=== PATIENT | female | born 1975 | race Caucasian/White ===

== ENCOUNTER → 2020-05-11 11:11 | Outpatient (BNVA) | payer MEDICAID, SELFPAY | PROVIDERS: Family Provider Nurse Practitioner Family; PCP Nurse Practitioner Family; Visit Provider Nurse Practitioner Family | DX: R43.0 Anosmia (principal); J02.9 Acute pharyngitis, unspecified; R10.9 Unspecified abdominal pain; F41.9 Anxiety disorder, unspecified; F32.9 Major depressive disorder, single episode, unspecified; M54.5 Low back pain; R43.2 Parageusia; R51 Headache | CPT/HCPCS: 81000; 87071; 87086; 87635; 87880 ==

== ENCOUNTER → 2020-05-19 11:30 | Outpatient (BNVA) | payer MEDICAID, SELFPAY | PROVIDERS: Family Provider Nurse Practitioner Family; PCP Nurse Practitioner Family; Visit Provider Internal Medicine | DX: R50.9 Fever, unspecified (principal) | CPT/HCPCS: 87635 ==

== ENCOUNTER → 2020-05-27 11:25 | Outpatient (BNVA) | payer MEDICAID, SELFPAY | PROVIDERS: Family Provider Nurse Practitioner Family; Visit Provider Obstetrics & Gynecology | DX: R50.9 Fever, unspecified (principal); M54.9 Dorsalgia, unspecified | CPT/HCPCS: 86618; 86666; 86757 ==

== ENCOUNTER → 2020-06-10 13:51 | Outpatient (BNVA) | payer MEDICAID, SELFPAY | PROVIDERS: Family Provider Nurse Practitioner Family; PCP Nurse Practitioner Family; Visit Provider Psychiatry & Neurology Psychiatry | DX: F43.12 Post-traumatic stress disorder, chronic (principal); F41.1 Generalized anxiety disorder; F33.1 Major depressive disorder, recurrent, moderate; M54.16 Radiculopathy, lumbar region | CPT/HCPCS: 99204 ==

== ENCOUNTER → 2020-06-23 09:11 | Outpatient (BNVA) | payer MEDICAID, SELFPAY | PROVIDERS: Family Provider Nurse Practitioner Family; PCP Nurse Practitioner Family; Visit Provider Nurse Practitioner | DX: G89.29 Other chronic pain (principal); M54.9 Dorsalgia, unspecified; M54.16 Radiculopathy, lumbar region; M54.2 Cervicalgia | CPT/HCPCS: 72040; 72072; 72100 ==

== ENCOUNTER → 2020-07-15 08:43 | Outpatient (BNVA) | payer MEDICAID, SELFPAY | PROVIDERS: Family Provider Nurse Practitioner Family; PCP Nurse Practitioner Family; Visit Provider Psychiatry & Neurology Psychiatry | DX: F33.1 Major depressive disorder, recurrent, moderate (principal); I10 Essential (primary) hypertension; F41.1 Generalized anxiety disorder; F43.12 Post-traumatic stress disorder, chronic; G47.9 Sleep disorder, unspecified | CPT/HCPCS: 99214 ==

== ENCOUNTER → 2020-08-06 07:42 | Outpatient (BNVA) | payer MEDICAID, SELFPAY | PROVIDERS: Family Provider Nurse Practitioner Family; PCP Nurse Practitioner Family; Visit Provider Psychiatry & Neurology Psychiatry | DX: F33.1 Major depressive disorder, recurrent, moderate (principal); F41.1 Generalized anxiety disorder; F43.12 Post-traumatic stress disorder, chronic; G47.9 Sleep disorder, unspecified | CPT/HCPCS: 99213 ==

== ENCOUNTER → 2020-08-19 10:32 | Outpatient (BNVA) | payer MEDICAID, SELFPAY | PROVIDERS: Family Provider Nurse Practitioner Family; PCP Nurse Practitioner Family; Visit Provider Nurse Practitioner | DX: M25.50 Pain in unspecified joint (principal) | CPT/HCPCS: 81000; 86038 ==

== ENCOUNTER → 2020-08-20 10:42 | Outpatient (BNVA) | payer MEDICAID, SELFPAY | PROVIDERS: Family Provider Nurse Practitioner Family; PCP Nurse Practitioner Family; Visit Provider Nurse Practitioner | DX: M25.50 Pain in unspecified joint (principal) | CPT/HCPCS: 80053; 85025; 85651; 86140; 86618; 86666; 86757 ==

== ENCOUNTER → 2020-09-06 10:06 | Outpatient (BNVA) | payer MEDICAID, SELFPAY | PROVIDERS: Family Provider Nurse Practitioner Family; PCP Nurse Practitioner Family; Visit Provider Nurse Practitioner | DX: Z11.59 Encounter for screening for other viral diseases (principal); M54.16 Radiculopathy, lumbar region; R73.9 Hyperglycemia, unspecified; R76.8 Other specified abnormal immunological findings in serum; Z91.89 Other specified personal risk factors, not elsewhere classified | CPT/HCPCS: 80048; 83036; 86431; 86705; 86706; 86709; 86803; 87340 ==

== ENCOUNTER → 2020-10-06 08:07 | Outpatient (BNVA) | payer MEDICAID, SELFPAY | PROVIDERS: Family Provider Nurse Practitioner Family; PCP Nurse Practitioner Family; Visit Provider Psychiatry & Neurology Psychiatry | DX: F33.1 Major depressive disorder, recurrent, moderate (principal); F41.1 Generalized anxiety disorder; F43.12 Post-traumatic stress disorder, chronic; G47.9 Sleep disorder, unspecified | CPT/HCPCS: 99213 ==

== ENCOUNTER → 2020-11-03 09:24 | Outpatient (BNVA) | payer MEDICAID, SELFPAY | PROVIDERS: Family Provider Nurse Practitioner Family; PCP Nurse Practitioner; Visit Provider Internal Medicine Rheumatology | DX: M25.50 Pain in unspecified joint (principal); Z79.899 Other long term (current) drug therapy; Z11.1 Encounter for screening for respiratory tuberculosis; R76.8 Other specified abnormal immunological findings in serum; F43.12 Post-traumatic stress disorder, chronic | CPT/HCPCS: 99204 ==

== ENCOUNTER 2020-11-03 10:42 | Outpatient (CLI) | payer MEDICAID, SELFPAY ==
--- NOTE | 2020-11-03 11:00 | XR_ITS ---
WS: [id number] Left hand, 3 views, 11/03/2020 Clinical Data: M19.90 - Unspecified osteoarthritis, unspecified site Comparison: None. Findings: No fractures or dislocations are seen. The soft tissues are unremarkable. The joint spaces are normal XR/XR hand LT min 3V* [id number] Impression: Negative left hand.
--- NOTE | 2020-11-03 11:00 | XR_ITS ---
WS: [id number] Right hand, 3 views, 11/03/2020 Clinical Data: M19.90 - Unspecified osteoarthritis, unspecified site Comparison: None. Findings: No fractures or dislocations are seen. The soft tissues are unremarkable. The joint space s are normal XR/XR hand RT min 3V* [id number] Impression: Negative right hand.
--- NOTE | 2020-11-03 11:00 | XR_ITS ---
WS: [id number] Right foot, 3 views, 11/03/2020 Clinical Data: M19.90 - Unspecified osteoarthritis, unspecified site Comparison: None. Findings: No fractures or dislocations are seen. No bone destruction or erosion is noted. The joint spaces and soft tissues are normal. XR/XR foot RT min 3V* [id number] Impression: Negative right foot.
--- NOTE | 2020-11-03 11:00 | XR_ITS ---
WS: [id number] Left foot, 3 views, 11/03/2020 Clinical Data: M19.90 - Unspecified osteoarthritis, unspecified site Comparison: None. Findings: No fractures or dislocations are seen. No bone destruction or erosion is noted. The joint spaces and soft tissues are normal. XR/XR foot LT min 3V* [id number] Impression: Negative left foot.
[2020-11-03 11:55] LABS: Basophils % 0.4 %; Eosinophils % 0.5 %; Hematocrit 43.1 % (37.0-47.0); Hemoglobin 13.9 g/dL (11.5-15.3); Lymphocytes # 1.7 10^3/uL (0.8-4.8); Lymphocytes % 31.7 %; Mean Corpuscular HGB Conc 32.3 g/dL (30.0-36.0); Mean Corpuscular Hemoglobin 29.5 pg (28.0-34.0); Mean Corpuscular Volume 91.5 fL (81-99); Mean Platelet Volume 9.7 fL (7.4-10.4); Monocytes # 0.4 10^3/uL (0.2-0.9); Monocytes % 6.6 %; Neutrophils # 3.28 10^3/uL (1.8-7.7); Neutrophils % 60.1 %; Nucleated Red Blood Cells % 0 %; Platelet Count 269 10^3/cmm (130-400); Red Blood Count 4.71 10^6/uL (4.1-5.3); Red Cell Distribution Width 12.7 % (12.1-15.1); White Blood Count 5.5 10^3/uL (4.0-10.0)
[2020-11-03 12:28] LABS: Alanine Aminotransferase 44 U/L (0-33); Alkaline Phosphatase 82 IU/L (35-105); Aspartate Amino Transferase 45 U/L (0-32); C Reactive Protein 2.4 mg/L (0.0-4.9); Free T4 Free Thyroxine 0.99 ng/dL (0.82-1.77); Globulin 3.1 g/dL (1.3-4.6); Glomerular Filtration Rate 91.3 mL/min (90-130); Thyroid Stimulating Hormone 0.61 uIU/mL (0.27-4.20); Total Bilirubin 0.4 mg/dL (0.15-1.2); Total Protein 7.1 g/dL (6.6-8.7)
[2020-11-03 13:30] LABS: Erythrocyte Sedimentation Rate 15 mm/hr (0-15)
[2020-11-03 14:02] LABS: 25 Hydroxy Vitamin D 38 ng/mL (30-100)
[2020-11-04 12:33] LABS: Cyclic Citrullinated Peptide <16 UNITS
[2020-11-05 13:28] LABS: Quantiferon Mitogen >10.00 IU/mL; Quantiferon Nil 0.03 IU/mL; Quantiferon Plus TB1 0.01 IU/mL; Quantiferon Plus TB2 0.01 IU/mL; Quantiferon TB Gold NEGATIVE (NEGATIVE)
== END 2020-11-03 10:43 | disposition home or self-care (01) ==
PROVIDERS: PCP Nurse Practitioner; Visit Provider Internal Medicine Rheumatology
DX: M19.90 Unspecified osteoarthritis, unspecified site (principal); Z79.899 Other long term (current) drug therapy
CPT/HCPCS: 36415; 73130; 73630; 80076; 82306; 82565; 84439; 84443; 85025; 85651; 86140; 86431; 86480

== ENCOUNTER → 2020-11-30 10:20 | Outpatient (BNVA) | payer MEDICAID, SELFPAY | PROVIDERS: PCP Nurse Practitioner; Visit Provider Psychiatry & Neurology Psychiatry | DX: F41.1 Generalized anxiety disorder (principal); F43.12 Post-traumatic stress disorder, chronic; F33.1 Major depressive disorder, recurrent, moderate; G47.9 Sleep disorder, unspecified | CPT/HCPCS: 99214 ==

== ENCOUNTER → 2020-12-27 11:00 | Outpatient (BNVA) | payer MEDICAID, SELFPAY | PROVIDERS: PCP Nurse Practitioner; Visit Provider Psychiatry & Neurology Psychiatry | DX: F41.1 Generalized anxiety disorder (principal); F43.12 Post-traumatic stress disorder, chronic; F33.1 Major depressive disorder, recurrent, moderate; G47.9 Sleep disorder, unspecified; Z72.820 Sleep deprivation | CPT/HCPCS: 99214 ==

== ENCOUNTER → 2020-12-30 13:55 | Outpatient (BNVA) | payer MEDICAID, SELFPAY | PROVIDERS: PCP Nurse Practitioner; Visit Provider Nurse Practitioner | DX: M06.041 Rheumatoid arthritis without rheumatoid factor, right hand (principal); M06.042 Rheumatoid arthritis without rheumatoid factor, left hand; R76.8 Other specified abnormal immunological findings in serum; Z79.899 Other long term (current) drug therapy; M54.16 Radiculopathy, lumbar region; F41.1 Generalized anxiety disorder | CPT/HCPCS: 80076; 82565; 85025; 86140 ==

== ENCOUNTER 2021-01-18 19:10 | Emergency (ER) | payer MEDICAID, SELFPAY ==
[2021-01-18 19:13] VITALS: BP 146/77; PULSE 109; RESP 18; TEMP 36.8; O2SAT 95; BMI 39.9
--- NOTE | 2021-01-18 21:36 | ED_ITS ---
HPI - General Adult General: Chief complaint: General Medical Stated complaint: body pain, has lupus Time Seen by Provider: 01/18/21 21:34 History of Present Illness: HPI narrative: Patient is a 45-year-old female who comes to the ED with body pain. Patient has a history of lupus and RA and thinks she is currently having a lupus flare. Patient currently takes hydrochloric when for her lupus. Patient was on a daily steroid but was removed from it approximately 7 days ago. Symptoms started 3 days ago. She describes having muscular pains in her upper back bilaterally that also causes right and left rib pain on her sides. Denies any trauma or injury to cause pain. She rates her pain currently a 10 out of 10. Patient also complained of having some burning when she urinates. Associated symptoms: Deny chest pain, dyspnea, headache(s), nausea, rash, palpitations or vomiting Review of Systems Const: Denies: fever(s), chills or fatigue Eyes: Denies: change in vision or eye discomfort ENMT: Denies: throat pain, odynophagia, nasal discharge or nasal congestion Card: Denies: chest pain, palpitations, edema, swelling of feet/ankles, dyspnea on exertion or orthopnea Resp: Denies: dyspnea, productive cough or non-productive cough GI: Denies: abdominal pain, nausea, vomiting, diarrhea, constipation or hematochezia : Reports: dysuria; Denies: flank pain or hematuria Musc: Reports: back pain (upper back bilateral pain); Denies: neck pain or extremity swelling Skin/Breast: Denies: rash or new lesions Neuro: Denies: headache(s), numbness in extremities or weakness in extremities PFS ED PFSH: Medical History Anxiety and depression Essential (primary) hypertension High risk medication use Immunization counseling Inflammatory arthritis Lumbar radicular pain Problems related to lack of adequate sleep Seronegative rheumatoid arthritis of both hands Sleeping difficulty Surgical History History of bilateral ligation of fallopian tubes 2002 History of ectopic Right salpingectomy due to ectopic 06/17/2014 Dr. Guzmán History of reversal of tubal ligation 01/2014 Family History Father Stroke CAD (coronary artery disease) Mother Diabetes Hypertension Family/Other Cancer Aunt with cervical cancer Other Family history of premature coronary artery disease Lupus Rheumatoid arthritis Denies family history of Hyperlipidemia Chronic kidney disease (CKD) Lung disease Social History Smoking and tobacco status: former smoker Quit status (tobacco): has quit using tobacco Second hand smoke exposure: No Smoking risk assessment/counseling performed?: No Alcohol intake: never Desire information about alcohol rehabilitation?: No Counseling given: No Desire information about substance/drug rehabilitation?: No Counseling given: No Adopted: No Caregiver/support person: No Lives independently: Yes Household members: spouse and children Housing: House Marital status: Number of children: 5 service: No Current occupational status: employed History of recent travel: No Current gender identity: Female Physical Exam Const: COMMON NORMALS: no acute distress, patient oriented x3 and alert GENERAL APPEARANCE: cooperative and comfortable HENMT: COMMON NORMALS: normocephalic HEAD & SCALP: normocephalic MOUTH: Normal oral and palatal mucosa present THROAT: posterior oropharynx normal and uvula midline Eye: COMMON NORMALS: Equal, round and reactive pupils present PUPIL: Yes Equal, round and reactive pupils present Neck/C-Spine: COMMON NORMALS: supple GENERAL: Yes normal visual inspection Resp: COMMON NORMALS: normal respiratory effort, No retractions, No use of accessory muscles and clear to auscultation bilaterally AUSCULTATION: clear to auscultation bilaterally Cardio: COMMON NORMALS: regular rate, regular rhythm, S1 normal heart sound present, S2 normal heart sound present, No gallops present (Cardio), No clicks present (Cardio), No murmurs present (Cardio) and Peripheral pulses 2+ throughout RATE: regular rate RHYTHM: regular rhythm HEART SOUNDS: S1 normal heart sound present and S2 normal heart sound present PERIPHERAL PULSES: Peripheral pulses 2+ throughout GI: COMMON NORMALS: Normal to inspection, nondistended, normoactive bowel sounds present, Soft to palpation, non-tender and no masses PALPATION: Yes Soft to palpation : COMMON NORMALS: Yes no CVA tenderness BLADDER/KIDNEY EXAM: Yes no CVA tenderness Back/Pelvis: COMMON NORMALS: no CVA tenderness THORACIC SPINE/UPPER BACK: Yes paraspinal muscle tenderness Thoracic paraspinal muscle tenderness: bilateral (throughout upper back) Extremity: COMMON NORMALS: normal to inspection and no pedal edema Neuro: COMMON NORMALS: patient oriented x3 and moves all extremities SENSORIUM/ORIENTATION: Yes alert Skin: GENERAL SKIN EXAM: dry skin Course Vital Signs: Vital signs: Vital Signs Temperature 98.2 F 01/18/21 19:13 Pulse Rate 99 01/18/21 23:53 Respiratory Rate 16 01/18/21 23:53 Blood Pressure 115/86 01/18/21 23:53 Pulse Oximetry 96 01/18/21 23:53 MDM - General Adult MDM Narrative: Medical decision making narrative: Patient is a 45-year-old female comes to the ED with upper back pain that is tender to touch throughout the upper back. Patient has a history of lupus and RA and she says that this is like one of her past lupus flares. Denies any acute trauma or injury to cause upper back pain. Patient also noted that she is on hydroxychloroquine and was just recently taken off of steroid over 7 days ago. She is also complained of having some dysuria as well. CBC and CMP were unremarkable. CRP was elevated 11.2. UA shows signs of UTI. While here in the ED patient received morphine, Norflex and Solu-Medrol. Patient was also given a dose of cefdinir for her UTI while here in the ED as well. Patient's symptoms did improve. She was diagnosed with lupus and UTI and sent home with a prescription for cefdinir, Medrol Dosepak and methocarbamol. Patient sees a cabinetmaker apprentice and is contacting her in the morning to discuss her symptoms. Patient is also in the process of being set up with pain management clinic. Return to ED precautions given. Patient understood agree with plan. Lab Data: Attestation: I reviewed the patient's lab results. Labs: Lab Results 01/18/21 01/18/21 01/18/21 Range/Units 22:00 22:40 22:40 WBC 8.3 (4.0-10.0) 10^3/ uL RBC 4.57 (4.1-5.3) 10^6/u L Hgb 14.0 (11.5-15.3) g/dL Hct 46.7 (37.0-47.0) % MCV 102.2 H (81-99) fL MCH 30.6 (28.0-34.0) pg MCHC 30.0 (30.0-36.0) g/dL RDW 13.2 (12.1-15.1) % Plt Count 235 (130-400) 10^3/c mm MPV 10.4 (7.4-10.4) fL Neut % (Auto) 53.1 % Lymph % (Auto) 36.0 % [place] % (Auto) 9.1 % Eos % (Auto) 0.8 % Baso % (Auto) 0.6 % Neut # (Auto) 4.39 (1.8-7.7) 10^3/u L Lymph # (Auto) 3.0 (0.8-4.8) 10^3/u L [place] # (Auto) 0.8 (0.2-0.9) 10^3/u L Eos # (Auto) 0.1 (0.0-0.8) 10^3/u L Baso # (Auto) 0.1 (0.0-0.1) 10^3/u L Nucleated RBC % (a uto) 0 % Nucleated RBCs # 0.0 /100WBC Sodium 136 (136-145) mmol/L Potassium 3.7 (3.5-5.1) mmol/L Chloride 107 (98-107) mmol/L Carbon Dioxide 21 L (22-29) mmol/L Anion Gap 11.7 (5-19) BUN 11 (6-20) mg/dL Creatinine 0.7 (0.5-0.9) mg/dL GFR Calculation 91.3 (90-130) mL/min Glucose 83 (65-115) mg/dL Calculated Osmolal ity 281 L (285-295) mOsm/k g Calcium 8.5 (8.5-10.5) mg/dL Total Bilirubin 0.2 (0.15-1.2) mg/dL AST 23 (0-32) U/L ALT 24 (0-33) U/L Alkaline Phosphata se 58 (35-105) IU/L C-Reactive Protein 11.2 H (0.0-4.9) mg/L Total Protein 6.8 (6.6-8.7) g/dL Albumin 3.7 (3.5-5.2) g/dL Globulin 3.1 (1.3-4.6) g/dL Urine Color Yellow (Yellow) Urine Appearance Hazy A (CLEAR) Urine pH 7 (5-7) Ur Specific Gravit y 1.005 (1.005-1.030) Urine Protein Neg (Negative) Urine Glucose (UA) Norm (Normal) Urine Ketones Negative (Negative) Urine Blood Neg (Negative) Urine Nitrate Negative (Negative) Urine Bilirubin Neg (Negative) Urine Urobilinogen Norm (Negative) mg/dL Ur Leukocyte Ryanne ase 1+ H (Negative) Urine RBC 0-4 H (0-2) /hpf Urine WBC 15-25 H (0-5) /hpf Ur Squamous Epith Cells 10-15 H (0-5) /hpf Amorphous Sediment Not Reportable Urine Bacteria 2+ H (NONE) /hpf Discharge Plan Discharge Patient Disposition: Home Clinical Impression: Lupus UTI (urinary tract infection) Qualifiers: Urinary tract infection type: acute cystitis Hematuria presence: with hematuria Qualified Code(s): N30.01 - Acute cystitis with hematuria Condition: Stable Prescriptions: New Medrol (German) 4 mg tablets,dose pack See Rx Instructions .ROUTE .COMPLEX Qty: 21 RF: 0 methocarbamol 750 mg tablet 750 mg PO Q8H Qty: 20 RF: 0 cefdinir 300 mg capsule 300 mg PO BID 7 Days Qty: 14 RF: 0 No Action acetaminophen [Tylenol Extra Strength] 500 mg tablet 500 mg PO Q6H PRNRF: 0 multivitamin Tablet 1 tab PO DAILY RF: 0 pantoprazole 40 mg tablet,delayed release (DR/EC) 40 mg PO DAILY Qty: 30 RF: 3 prednisone 5 mg tablet See Rx Instructions PO DAILY Qty: 90 RF: 3 leflunomide 20 mg tablet 20 mg PO DAILY Qty: 30 RF: 3 hydroxychloroquine 200 mg tablet 200 mg PO BID Qty: 60 RF: 3 escitalopram oxalate 20 mg tablet 20 mg PO DAILY 30 Days Qty: 30 RF: 3 clonazepam 0.5 mg tablet 0.25 mg PO DAILY PRN (Reason: anxiety) 30 Days Qty: 15 RF: 1 eszopiclone [Lunesta] 3 mg tablet 3 mg PO .qhs 30 Days Qty: 30 RF: 3 zonisamide [Zonegran] 25 mg capsule 75 mg PO BID Qty: 180 RF: 5 diclofenac sodium 1 % gel 2 g topical QID Qty: 100 RF: 2 prednisone 10 mg tablet See Rx Instructions PO DAILY Qty: 40 RF: 1 norethindrone-e.estradiol-iron [Microgestin Fe 1.5/30 (28)] 1.5 mg-30 mcg (21)/75 mg (7) tablet 1 tab PO DAILY Qty: 28 RF: 12 Discharge Orders: Discharge ED (Routine); Ordered 01/18/21 Ordered By: Aaron Garcia Referrals: Arjun De La Fuente, WEAVING TEACHER-C [Primary Care Provider] - Discharge Diet: Regular Discharge Activity: Increase activity as tolerated Patient Instructions: Urinary Tract Infection in Women (ED) Activity Restrictions/Additional Instructions: Follow-up with medical provider as directed. Contact your cabinetmaker apprentice within the next couple days to discuss current symptoms. Take medications as prescribed. Methocarbamol is a muscle relaxer and can cause some drowsiness so take at night before bed. Make sure you drink plenty of fluids and stay hydrated. Return to the ER or your medical provider if condition worsens. Please read and understand discharge instructions. If any questions, please ask. Coding Level of Care Code ED Cable Supervisor for [facility] Fwd Exam Comprehensive
[2021-01-18 21:42] VITALS: BP 118/76; PULSE 91; RESP 18; O2SAT 98
[2021-01-18 22:39] LABS: Urine Appearance Hazy (CLEAR); Urine Color Yellow (Yellow); pH Urine 7 (5-7)
[2021-01-18 22:40] LABS: Bacteria Urine 2+ /hpf; Bilirubin Urine Neg (Negative); Blood Urine Neg (Negative); Glucose Urine UA Norm (Normal); Ketones Urine Negative (Negative); Leukocyte Esterase Urine 1+ (Negative); Nitrate Urine Negative (Negative); Protein Urine Neg (Negative); RBC Urine 0-4 /hpf (0-2); Specific Gravity, Urine 1.005 (1.005-1.030); Urobilinogen Urine Norm (Negative); WBC Urine 15-25 /hpf (0-5)
[2021-01-18 22:48] LABS: Basophils # 0.1 10^3/uL (0.0-0.1); Basophils % 0.6 %; Eosinophils # 0.1 10^3/uL (0.0-0.8); Eosinophils % 0.8 %; Hematocrit 46.7 % (37.0-47.0); Mean Corpuscular Hemoglobin 30.6 pg (28.0-34.0); Mean Corpuscular Volume 102.2 fL (81-99); Mean Platelet Volume 10.4 fL (7.4-10.4); Monocytes # 0.8 10^3/uL (0.2-0.9); Monocytes % 9.1 %; Neutrophils # 4.39 10^3/uL (1.8-7.7); Neutrophils % 53.1 %; Nucleated Red Blood Cells % 0 %; Platelet Count 235 10^3/cmm (130-400); Red Blood Count 4.57 10^6/uL (4.1-5.3); Red Cell Distribution Width 13.2 % (12.1-15.1); White Blood Count 8.3 10^3/uL (4.0-10.0)
[2021-01-18] MEDS: ondansetron 2 mg/ML SDV 2 mL 4 MG IVP (22:52)
[2021-01-18] MEDS: orphenadrine 30 mg/mL Inj 2 mL 60 MG IVP (22:53)
[2021-01-18 22:54] VITALS: RESP 16; O2SAT 99
[2021-01-18] MEDS: morphine 4 mg/mL SDV 1 mL 2 MG IVP (22:54)
[2021-01-18 22:59] VITALS: BP 115/86; PULSE 98; RESP 16; O2SAT 97
[2021-01-18 23:08] LABS: Alanine Aminotransferase 24 U/L (0-33); Albumin Level 3.7 g/dL (3.5-5.2); Alkaline Phosphatase 58 IU/L (35-105); Blood Urea Nitrogen 11 mg/dL (6-20); C Reactive Protein 11.2 mg/L (0.0-4.9); Calcium 8.5 mg/dL (8.5-10.5); Carbon Dioxide 21 mmol/L (22-29); Chloride 107 mmol/L (98-107); Globulin 3.1 g/dL (1.3-4.6); Glomerular Filtration Rate 91.3 mL/min (90-130); Glucose 83 mg/dL (65-115); Osmolality Calculated 281 mOsm/kg (285-295); Sodium 136 mmol/L (136-145); Total Bilirubin 0.2 mg/dL (0.15-1.2); Total Protein 6.8 g/dL (6.6-8.7)
[2021-01-18 23:13] LABS: Anion Gap 11.7 (5-19); Aspartate Amino Transferase 23 U/L (0-32); Potassium 3.7 mmol/L (3.5-5.1)
[2021-01-18] MEDS: HYDROcodone-acetaminophen 7.5-325 mg Tablet 1 TAB PO (23:47)
[2021-01-18] MEDS: cefdinir 300 MG CAPSULE PO (23:48)
[2021-01-18 23:53] VITALS: BP 115/86; PULSE 99; RESP 16; O2SAT 96
== END 2021-01-18 23:54 | disposition home or self-care (01) ==
PROVIDERS: Emergency Provider Physician Assistant; PCP Nurse Practitioner
DX: M32.9 Systemic lupus erythematosus, unspecified (principal); N30.01 Acute cystitis with hematuria; I10 Essential (primary) hypertension; Z87.891 Personal history of nicotine dependence
CPT/HCPCS: 80053; 81001; 85025; 86140; 96374; 96375; 99283; J2270; J2360; J2405; J2930

== ENCOUNTER 2021-02-20 13:45 | Emergency (ER) | payer MEDICAID, SELFPAY ==
[2021-02-20 14:06] VITALS: BP 125/72; PULSE 80; RESP 18; TEMP 36.8; O2SAT 100; BMI 39.4
--- NOTE | 2021-02-20 14:08 | XRR_ITS ---
PROCEDURE INFORMATION: Exam: XR Right Shoulder Exam date and time: 02/20/2021 3:10 PM Age: 45 years old Clinical indication: Injury or trauma; Fall; Blunt trauma (contusions or hematomas); Shoulder; Right; Additional info: RT shoulder pain TECHNIQUE: Imaging protocol: XR Right shoulder. Views: 2 or more views. COMPARISON: No relevant prior studies available. FINDINGS: Bones/joints: No acute displaced fracture or dislocation. Mild osteoarthritis of the glenohumeral and acromioclavicular joints. Soft tissues: Normal. XR/XR shoulder RT min 2V* [id number] IMPRESSION: No acute displaced fracture or dislocation.
--- NOTE | 2021-02-20 16:05 | W.ED.BACK ---
Documented by User: Pham Hernandez FELICIA Guardado 02/24/21 19:22 HPI - Back Pain/Injury General: Chief Complaint: Back Pain/Injury Stated Complaint: R SHOULDER INJURY Time Seen by Provider: 02/20/21 14:09 Source: patient Mode of arrival: ambulatory Limitations: no limitations History of Present Illness: HPI Narrative: 45-year-old female patient presents to the emergency department due to fall from a ladder. She reports this morning around 10:30 AM, she was up on the ladder when her 2-year-old child struck the bottom of the ladder causing her to fall. She reports went to denominational then began to feel bad at denominational with pain, she presents with right shoulder pain, right humeral pain, right chest and abdominal pain. She reports did experience vomiting, states hit her head did have loss of consciousness, states she woke with her son shaking her. She states is ambulated without difficulty. She has not had anything for pain prior to arrival. She reports history of lupus, pain scale is constantly 4/10 on a daily basis. MD elicited complaint: fall Timing: constant Severity: moderate Similar Symptoms Previously: No Quality: sharp Relieving factors: immobilization Context: fall Associated symptoms: Reports abdominal pain, nausea and vomiting; Deny chills, dysuria, fatigue or fever(s) Work related injury: No Review of Systems General: Reports: 10 or more systems reviewed and unremarkable except in HPI and below Const: Reports: body aches; Denies: fever(s), chills, fatigue, malaise or diaphoresis Eyes: Denies: change in vision, blurry vision, eye discharge or eye redness ENMT: Denies: throat pain, mouth pain, dental pain, change in hearing, disequilibrium, nasal discharge, nasal congestion, epistaxis or sinus pain Card: Reports: chest pain (rib pain); Denies: palpitations, irregular heart rhythm, lightheadedness or dyspnea on exertion Resp: Denies: dyspnea, productive cough, non-productive cough, wheezing, change in phlegm color or chest congestion GI: Reports: abdominal pain, nausea and vomiting; Denies: diarrhea or constipation : Denies: difficulty voiding or dysuria Musc: Reports: neck pain, extremity pain, extremity swelling, joint swelling and limited range of motion; Denies: back pain Skin/Breast: Reports: skin swelling; Denies: rash or pruritus Neuro: Reports: headache(s); Denies: weakness in extremities, lack of coordination, dizziness, vertigo, confusion, behavioral changes, Slurred speech present or difficulty communicating thoughts Psych: Denies: anxiety or depression Toni/Lymph: Denies: easy bruising PFSH ED PFSH: Medical History Anxiety and depression Essential (primary) hypertension High risk medication use Immunization counseling Inflammatory arthritis Lumbar radicular pain Problems related to lack of adequate sleep Seronegative rheumatoid arthritis of both hands Sleeping difficulty Surgical History History of bilateral ligation of fallopian tubes 2002 History of ectopic Right salpingectomy due to ectopic 06/17/2014 Dr. Guzmán History of reversal of tubal ligation 01/2014 Family History Father Stroke CAD (coronary artery disease) Mother Diabetes Hypertension Family/Other Cancer Aunt with cervical cancer Other Family history of premature coronary artery disease Lupus Rheumatoid arthritis Denies family history of Hyperlipidemia Chronic kidney disease (CKD) Lung disease Social History Smoking and tobacco status: former smoker Quit status (tobacco): has quit using tobacco Second hand smoke exposure: No Smoking risk assessment/counseling performed?: No Alcohol intake: never Desire information about alcohol rehabilitation?: No Counseling given: No Desire information about substance/drug rehabilitation?: No Counseling given: No Adopted: No Caregiver/support person: No Lives independently: Yes Household members: spouse and children Housing: House Marital status: Number of children: 5 service: No Current occupational status: employed History of recent travel: No Current gender identity: Female Female Reproductive History: Date of last menstrual period: 01/13/21 Physical Exam Const: COMMON NORMALS: no acute distress, patient oriented x3, alert and well nourished GENERAL APPEARANCE: cooperative, well kempt, well developed and well hydrated; not lethargic NUTRITIONAL APPEARANCE: obese ORIENTATION/CONSCIOUSNESS: Yes awake, Yes oriented to person, Yes oriented to place and Yes oriented to time; not confused, not patient obtunded and not lethargic HENMT: COMMON NORMALS: normocephalic, EAC's normal, TM's normal bilaterally, Normal external nose present and moist oral mucous membranes HEAD & SCALP: normal to inspection, normocephalic and scalp tenderness FACE & SINUS: normal facial exam, sinuses nontender and face symmetric NOSE: Normal external nose present and Normal nares present EXTERNAL AUDITORY CANAL: EAC's normal TYMPANIC MEMBRANE: TM's normal bilaterally MOUTH: Normal oral and palatal mucosa present, lip normal and tongue normal Eye: COMMON NORMALS: Equal, round and reactive pupils present and EOMs intact bilaterally GENERAL EYE: appearance normal, both eyes and all related structures PUPIL: Yes Equal, round and reactive pupils present Neck/C-Spine: COMMON NORMALS: full ROM and no lymphadenopathy GENERAL: Yes normal visual inspection and Yes trachea midline CERVICAL SPINE: Yes cervical ROM normal, Yes pain with cervical ROM with rotation to the left and with anterior flexion, Yes Cervical spine tenderness C3, C4, C5 and C6 and Yes Paracervical muscle tenderness right Lymph: LYMPHATIC: no lymphadenopathy noted Chest: COMMONS NORMALS: normal inspection of the chest and normal palpation of entire chest wall CHEST: Yes Symmetrical chest wall rise and Yes tenderness costal cartilage Laterality: right (right lateral) Costal cartilage location (right): 8th-9th rib, 9th-10th rib, 10th-11th rib and 11th-12 rib Resp: COMMON NORMALS: normal respiratory effort, No retractions and clear to auscultation bilaterally EFFORT & INSPECTION: Yes able to speak in complete sentences, Yes symmetric chest movement, No labored and No audible wheezes AUSCULTATION: clear to auscultation bilaterally Cardio: COMMON NORMALS: regular rate, regular rhythm, S1 normal heart sound present, S2 normal heart sound present and Peripheral pulses 2+ throughout RATE: regular rate RHYTHM: regular rhythm HEART SOUNDS: S1 normal heart sound present and S2 normal heart sound present PERIPHERAL PULSES: Peripheral pulses 2+ throughout GI: COMMON NORMALS: Normal to inspection, nondistended, normoactive bowel sounds present and Soft to palpation INSPECTION: Yes normal to inspection, No abdominal wall ecchymosis and No abdominal distension PALPATION: Yes Soft to palpation and Yes Tenderness to palpation present (GI) Details: RUQ : COMMON NORMALS: Yes no CVA tenderness BLADDER/KIDNEY EXAM: Yes no CVA tenderness Back/Pelvis: COMMON NORMALS: no CVA tenderness, thoracic and lumbar spine normal to inspection, no thoracic nor lumbar tenderness and thoraco-lumbar ROM normal THORACIC SPINE/UPPER BACK: Yes normal to inspection and Yes thoracic ROM normal LUMBAR SPINE/LOWER BACK: Yes normal to inspection and Yes lumbar ROM normal Extremity: COMMON NORMALS: normal to inspection, capillary refill normal, no clubbing, cyanosis or edema, no calf tenderness and no pedal edema RIGHT UPPER EXTREMITY: Yes upper arm Right upper arm: Yes inspection (deformity present with edema to the upper arm) and Yes neurovascular exam (distally intact) Neuro: WILLIAM COMA SCALE: document GCS findings [place] coma scale eye opening: Spontaneous [place] coma scale verbal response: Orientated [place] coma scale motor response: Obey commands [place] coma scale total score: 15 COMMON NORMALS: patient oriented x3 and no focal motor deficits SENSORIUM/ORIENTATION: Yes alert, Yes oriented to person, Yes oriented to place, Yes oriented to time and No lethargic GAIT: Yes Normal gait present MOTOR EXAM: 5/5 motor strength present throughout Right pupil size (mm): 4 Left pupil size (mm): 4 Psych: COMMON NORMALS: mental status grossly normal, Normal thought process present, cooperative, normal affect, speech normal and activity/motor behavior normal APPEARANCE: Yes grossly normal and Yes well kempt ATTITUDE: Yes calm ACTIVITY/MOTOR BEHAVIOR: Yes appropriate eye contact SPEECH: Yes normal speech THOUGHT PROCESS: Normal thought process present Skin: COMMON NORMALS: no rashes or lesions noted, turgor normal, no petechiae and no mottling GENERAL SKIN EXAM: no rashes or lesions noted, elasticity normal and turgor normal Course Vital Signs: Vital signs: Vital Signs Temperature 98.2 F 02/20/21 14:06 Pulse Rate 85 02/20/21 18:51 Respiratory Rate 16 02/20/21 18:51 Blood Pressure 108/55 02/20/21 18:51 Pulse Oximetry 99 02/20/21 18:51 MDM - Back Pain/Injury Lab Data: Labs: Lab Results 02/20/21 02/20/21 Range/Units 15:43 15:43 Urine Color Yellow (Yellow) Urine Appearance Cloudy (CLEAR) Urine pH 5 (5-7) Ur Specific Gravit y 1.025 (1.005-1.030) Urine Protein Neg (Negative) Urine Glucose (UA) Norm (Normal) Urine Ketones Negative (Negative) Urine Blood Neg (Negative) Urine Nitrate Negative (Negative) Urine Bilirubin Neg (Negative) Urine Urobilinogen Norm (Negative) mg/dL Ur Leukocyte Ryanne ase 2+ H (Negative) Urine RBC None (0-2) /hpf Urine WBC 15-25 H (0-5) /hpf Ur Squamous Epith Cells 15-25 H (0-5) /hpf Amorphous Sediment Not Reportable Urine Bacteria 2+ H (NONE) /hpf Urine HCG, Qual Negative (Negative) Discharge Plan Discharge Patient Disposition: Home Clinical Impression: Contusion Qualifiers: Encounter type: initial encounter Contusion area: upper arm Laterality: right Qualified Code(s): S40.021A - Contusion of right upper arm, initial encounter Condition: Stable Prescriptions: No Action acetaminophen [Tylenol Extra Strength] 500 mg tablet 500 mg PO Q6H PRNRF: 0 multivitamin Tablet 1 tab PO DAILY RF: 0 pantoprazole 40 mg tablet,delayed release (DR/EC) 40 mg PO DAILY Qty: 30 RF: 3 leflunomide 20 mg tablet 20 mg PO DAILY Qty: 30 RF: 3 hydroxychloroquine 200 mg tablet 200 mg PO BID Qty: 60 RF: 3 escitalopram oxalate 20 mg tablet 20 mg PO DAILY 30 Days Qty: 30 RF: 3 eszopiclone [Lunesta] 3 mg tablet 3 mg PO .qhs 30 Days Qty: 30 RF: 3 zonisamide [Zonegran] 25 mg capsule 75 mg PO BID Qty: 180 RF: 5 celecoxib [Celebrex] 100 mg capsule 100 mg PO BID Qty: 60 RF: 2 diclofenac sodium 1 % gel 2 g topical QID Qty: 100 RF: 2 Hold Instructions: restart Celebrex due to pain methocarbamol 750 mg tablet 750 mg PO TID Qty: 90 RF: 0 norethindrone-e.estradiol-iron [Microgestin Fe 1.5/30 (28)] 1.5 mg-30 mcg (21)/75 mg (7) tablet 1 tab PO DAILY Qty: 28 RF: 12 clonazepam 0.5 mg tablet 0.25 mg PO DAILY PRN (Reason: anxiety) 30 Days Qty: 15 RF: 0 Discharge Orders: Discharge ED (Routine); Ordered 02/20/21 Ordered By: Mahamed Awad Referrals: Arjun De La Fuente, [facility] [Primary Care Provider] - Patient Instructions: Opioid Safety Activity Restrictions/Additional Instructions: Follow-up with medical provider as directed. Take medications as prescribed. Return to the ER or your medical provider if condition worsens. Please read and understand discharge instructions. If any questions ask please. Apply ice to areas that are tender. 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 [employer] Fwd Exam Comprehensive Documented by User: KEMAR Hampton 02/20/21 20:00 HPI - Back Pain/Injury General: Chief Complaint: Back Pain/Injury Stated Complaint: R SHOULDER INJURY Time Seen by Provider: 02/20/21 14:09 [facility] ED PFSH: Medical History Anxiety and depression Essential (primary) hypertension High risk medication use Immunization counseling Inflammatory arthritis Lumbar radicular pain Problems related to lack of adequate sleep Seronegative rheumatoid arthritis of both hands Sleeping difficulty Surgical History History of bilateral ligation of fallopian tubes 2002 History of ectopic Right salpingectomy due to ectopic 06/17/2014 Dr. Guzmán History of reversal of tubal ligation 01/2014 Family History Father Stroke CAD (coronary artery disease) Mother Diabetes Hypertension Family/Other Cancer Aunt with cervical cancer Other Family history of premature coronary artery disease Lupus Rheumatoid arthritis Denies family history of Hyperlipidemia Chronic kidney disease (CKD) Lung disease Social History Smoking and tobacco status: former smoker Quit status (tobacco): has quit using tobacco Second hand smoke exposure: No Smoking risk assessment/counseling performed?: No Alcohol intake: never Desire information about alcohol rehabilitation?: No Counseling given: No Desire information about substance/drug rehabilitation?: No Counseling given: No Adopted: No Caregiver/support person: No Lives independently: Yes Household members: spouse and children Housing: House Marital status: Number of children: 5 service: No Current occupational status: employed History of recent travel: No Current gender identity: Female Course Vital Signs: Vital signs: Vital Signs Temperature 98.2 F 02/20/21 14:06 Pulse Rate 85 02/20/21 18:51 Respiratory Rate 16 02/20/21 18:51 Blood Pressure 108/55 02/20/21 18:51 Pulse Oximetry 99 02/20/21 18:51 MDM - Back Pain/Injury MDM Narrative: Medical decision making narrative: Received patient from KEMAR Raygoza. Patient feeling much better. Radiology studies all negative. Patient discharged home. Note given for work. Urine showed some WBCs and bacteria but also showed light epithelial cells discussed with patient if has any UTI symptoms follow-up family medical provider. Lab Data: Labs: Lab Results 02/20/21 02/20/21 Range/Units 15:43 15:43 Urine Color Yellow (Yellow) Urine Appearance Cloudy (CLEAR) Urine pH 5 (5-7) Ur Specific Gravit y 1.025 (1.005-1.030) Urine Protein Neg (Negative) Urine Glucose (UA) Norm (Normal) Urine Ketones Negative (Negative) Urine Blood Neg (Negative) Urine Nitrate Negative (Negative) Urine Bilirubin Neg (Negative) Urine Urobilinogen Norm (Negative) mg/dL Ur Leukocyte Ryanne ase 2+ H (Negative) Urine RBC None (0-2) /hpf Urine WBC 15-25 H (0-5) /hpf Ur Squamous Epith Cells 15-25 H (0-5) /hpf Amorphous Sediment Not Reportable Urine Bacteria 2+ H (NONE) /hpf Urine HCG, Qual Negative (Negative) Discharge Plan Discharge Patient Disposition: Home Clinical Impression: Contusion Qualifiers: Encounter type: initial encounter Contusion area: upper arm Laterality: right Qualified Code(s): S40.021A - Contusion of right upper arm, initial encounter Condition: Stable Prescriptions: No Action acetaminophen [Tylenol Extra Strength] 500 mg tablet 500 mg PO Q6H PRNRF: 0 multivitamin Tablet 1 tab PO DAILY RF: 0 pantoprazole 40 mg tablet,delayed release (DR/EC) 40 mg PO DAILY Qty: 30 RF: 3 leflunomide 20 mg tablet 20 mg PO DAILY Qty: 30 RF: 3 hydroxychloroquine 200 mg tablet 200 mg PO BID Qty: 60 RF: 3 escitalopram oxalate 20 mg tablet 20 mg PO DAILY 30 Days Qty: 30 RF: 3 eszopiclone [Lunesta] 3 mg tablet 3 mg PO .qhs 30 Days Qty: 30 RF: 3 zonisamide [Zonegran] 25 mg capsule 75 mg PO BID Qty: 180 RF: 5 celecoxib [Celebrex] 100 mg capsule 100 mg PO BID Qty: 60 RF: 2 diclofenac sodium 1 % gel 2 g topical QID Qty: 100 RF: 2 Hold Instructions: restart Celebrex due to pain methocarbamol 750 mg tablet 750 mg PO TID Qty: 90 RF: 0 norethindrone-e.estradiol-iron [Microgestin Fe 1.5/30 (28)] 1.5 mg-30 mcg (21)/75 mg (7) tablet 1 tab PO DAILY Qty: 28 RF: 12 clonazepam 0.5 mg tablet 0.25 mg PO DAILY PRN (Reason: anxiety) 30 Days Qty: 15 RF: 0 Discharge Orders: Discharge ED (Routine); Ordered 02/20/21 Ordered By: Mahamed Awad Referrals: Arjun De La Fuente, [facility] [Primary Care Provider] - Patient Instructions: Opioid Safety Activity Restrictions/Additional Instructions: Follow-up with medical provider as directed. Take medications as prescribed. Return to the ER or your medical provider if condition worsens. Please read and understand discharge instructions. If any questions ask please. Apply ice to areas that are tender. 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
--- NOTE | 2021-02-20 16:06 | XRR_ITS ---
PROCEDURE INFORMATION: Exam: XR Right Humerus Exam date and time: 02/20/2021 4:08 PM Age: 45 years old Clinical indication: Injury or trauma; Fall; Blunt trauma (contusions or hematomas); Shoulder; Right; Additional info: Deformity RT humerus TECHNIQUE: Imaging protocol: XR Right humerus. Views: 2 or more views. COMPARISON: No relevant prior studies available. FINDINGS: Bones/joints: Normal. Soft tissues: Normal. XR/[place] [id number] IMPRESSION: No acute findings.
--- NOTE | 2021-02-20 16:06 | CTR_ITS ---
PROCEDURE INFORMATION: Exam: CT Chest With Contrast; Diagnostic Exam date and time: 02/20/2021 4:25 PM Age: 45 years old Clinical indication: Injury or trauma; Ruq; Blunt trauma (contusions or hematomas); Prior surgery; Surgery date: 6+ months; Surgery type: Tubal w reversal; Patient HX: Fall from approx. 6 steps up a ladder landing on R side C/O R rib/flank pain; Additional info: Fall from ladder, abdominal pain, fell 6 ft TECHNIQUE: Imaging protocol: Diagnostic computed tomography of the chest with contrast. Radiation optimization: All CT scans at this facility use at least one of these dose optimization techniques: automated exposure control; mA and/or kV adjustment per patient size (includes targeted exams where dose is matched to clinical indication); or iterative reconstruction. Contrast material: OMNI 300; Contrast volume: 95 ml; Contrast route: INTRAVENOUS (IV); COMPARISON: No relevant prior studies available. RADIATION DOSE METRICS: Total DLP (mGy-cm): 2376.29 FINDINGS: Lungs: Unremarkable. No consolidation. No masses. Pleural spaces: Unremarkable. No pneumothorax. No pleural effusion. Heart: Unremarkable. No cardiomegaly. No pericardial effusion. Aorta: Unremarkable. No aortic aneurysm. Lymph nodes: Unremarkable. No enlarged lymph nodes. Bones/joints: Unremarkable. No acute fracture. Soft tissues: Unremarkable. IMPRESSION: No acute findings. PROCEDURE INFORMATION: Exam: CT Abdomen And Pelvis With Contrast Exam date and time: 02/20/2021 4:25 PM Age: 45 years old Clinical indication: Injury or trauma; Ruq; Blunt trauma (contusions or hematomas); Prior surgery; Surgery date: 6+ months; Surgery type: Tubal w reversal; Patient HX: Fall from approx. 6 steps up a ladder landing on R side C/O R rib/flank pain; Additional info: Fall from ladder, abdominal pain, fell 6 ft TECHNIQUE: Imaging protocol: Computed tomography of the abdomen and pelvis with contrast. Radiation optimization: All CT scans at this facility use at least one of these dose optimization techniques: automated exposure control; mA and/or kV adjustment per patient size (includes targeted exams where dose is matched to clinical indication); or iterative reconstruction. Contrast material: OMNI 300; Contrast volume: 95 ml; Contrast route: INTRAVENOUS (IV); COMPARISON: No relevant prior studies available. RADIATION DOSE METRICS: Total DLP (mGy-cm): 2376.29 FINDINGS: Lungs: The visualized lung bases are clear. Liver: Normal size and density. No focal mass. Gallbladder and bile ducts: No intrahepatic or extrahepatic biliary dilitation. No calcified stones. Pancreas: No evidence of mass. No ductal dilation. Spleen: No splenomegaly or mass. Adrenal glands: Normal. Kidneys and ureters: No stones or hydronephrosis. No evidence of focal mass. Stomach and bowel: No evidence of obstruction. No focal bowel wall thickening or mass. No significant diverticula. Appendix: No evidence of appendicitis. Intraperitoneal space: No free air. No free fluid or evidence of abscess. Vasculature: No concerning abnormalities. Lymph nodes: No lymphadenopathy. Urinary bladder: Normal CT appearance. Reproductive: Normal CT appearance for age. Bones/joints: No acute abnormality. Soft tissues: Within normal limits. CT/CT chest abd pel w con* IMPRESSION: No acute findings. Radiation Dose CTDIVOL = (mGy): DLP = 2376.29~2376.29 (mGy-cm)
--- NOTE | 2021-02-20 16:10 | CTR_ITS ---
PROCEDURE INFORMATION: Exam: CT Cervical Spine Without Contrast Exam date and time: 02/20/2021 4:25 PM Age: 45 years old Clinical indication: Injury or trauma; Blunt trauma; Patient HX: Fall from approx. 6 steps up a ladder landing on R side +loc; Additional info: Cervical spine pain S/P fall TECHNIQUE: Imaging protocol: Computed tomography images of the cervical spine without contrast. Radiation optimization: All CT scans at this facility use at least one of these dose optimization techniques: automated exposure control; mA and/or kV adjustment per patient size (includes targeted exams where dose is matched to clinical indication); or iterative reconstruction. COMPARISON: CR XR cervical spine 3V* [id number] 06/23/2020 9:12 AM RADIATION DOSE METRICS: Total DLP (mGy-cm): 722.95 FINDINGS: Bones/joints: No acute fracture. Normal alignment. Discs/Spinal canal/Neural foramina: No significant disc protrusion. No severe spinal canal stenosis. No significant neural foraminal narrowing. Lungs: Lung apices are normal. Soft tissues: Unremarkable. CT/CT cervical spin wo con* [id number] IMPRESSION: No acute findings. Radiation Dose CTDIVOL = (mGy): DLP = 722.95 (mGy-cm)
--- NOTE | 2021-02-20 16:10 | CTR_ITS ---
PROCEDURE INFORMATION: Exam: CT Head Without Contrast Exam date and time: 02/20/2021 4:25 PM Age: 45 years old Clinical indication: Injury or trauma; Blunt trauma (contusions or hematomas); With loss of consciousness; Loss of consciousness for 30 minutes or less; Patient HX: Fall from approx. 6 steps up a ladder landing on R side +loc; Additional info: Head injury with loc TECHNIQUE: Imaging protocol: Computed tomography of the head without contrast. Radiation optimization: All CT scans at this facility use at least one of these dose optimization techniques: automated exposure control; mA and/or kV adjustment per patient size (includes targeted exams where dose is matched to clinical indication); or iterative reconstruction. COMPARISON: No relevant prior studies available. RADIATION DOSE METRICS: Total DLP (mGy-cm): 866.09 FINDINGS: Brain: Normal. No hemorrhage. Unremarkable white matter. No mass effect. Cerebral ventricles: No ventriculomegaly. Bones/joints: Unremarkable. No acute fracture. Paranasal sinuses: Visualized sinuses are unremarkable. No fluid levels. Mastoid air cells: Visualized mastoid air cells are well aerated. Soft tissues: Unremarkable. CT/CT head wo con* [id number] IMPRESSION: No acute intracranial abnormality. Radiation Dose CTDIVOL = (mGy): DLP = 866.09 (mGy-cm)
[2021-02-20] MEDS: ondansetron 2 mg/ML SDV 2 mL 4 MG IVP (16:41)
[2021-02-20 16:42] VITALS: RESP 16
[2021-02-20] MEDS: morphine 4 mg/mL SDV 1 mL IVP (16:42)
[2021-02-20 16:45] LABS: Add Urine Microscopic? YES; Bilirubin Urine Neg (Negative); Blood Urine Neg (Negative); Glucose Urine UA Norm (Normal); Ketones Urine Negative (Negative); Leukocyte Esterase Urine 2+ (Negative); Nitrate Urine Negative (Negative); Protein Urine Neg (Negative); Specific Gravity, Urine 1.025 (1.005-1.030); Urine Appearance Cloudy (CLEAR); Urine Color Yellow (Yellow); Urobilinogen Urine Norm (Negative); WBC Urine 15-25 /hpf (0-5); pH Urine 5 (5-7)
[2021-02-20 16:46] LABS: Add Urine Culture? No; Bacteria Urine 2+ /hpf; Squamous Epithelial Cell Urine 15-25 /hpf (0-5)
[2021-02-20 16:48] VITALS: BP 110/64; PULSE 77; RESP 16; O2SAT 97
[2021-02-20] MEDS: HYDROcodone-acetaminophen 5-325 mg Tablet 1 TAB PO (17:17)
[2021-02-20 17:19] VITALS: BP 124/54; PULSE 76; RESP 16; O2SAT 100
[2021-02-20] MEDS: iohexol 300 mg/mL 100 mL Btl IV (17:42)
[2021-02-20 18:51] VITALS: BP 108/55; PULSE 85; RESP 16; O2SAT 99
== END 2021-02-20 18:52 | disposition home or self-care (01) ==
PROVIDERS: Nurse Practitioner Family; Emergency Provider Nurse Practitioner Family; PCP Nurse Practitioner
DX: S40.021A Contusion of right upper arm, initial encounter (principal); I10 Essential (primary) hypertension; Z87.891 Personal history of nicotine dependence; W11.XXXA Fall on and from ladder, initial encounter
CPT/HCPCS: 70450; 71260; 72125; 73030; 73060; 74177; 81001; 81025; 96374; 96375; 99284; J2270; J2405; Q9967

== ENCOUNTER 2021-02-21 10:56 | Outpatient (CLI) | payer MEDICAID, SELFPAY ==
--- NOTE | 2021-02-21 11:06 | XR_ITS ---
WS: [id number] Exam: XR lumbar spine f/e only [id number] Date/Time of Exam: 02/21/2021 11:07 AM Reason For Exam: LOW BACK PAIN Comparison 06/23/2020. Flexion and extension views of the lumbar spine show no evidence of instability or subluxation. The d isc spaces are preserved. Posterior elements are intact. Mild facet DJD at all levels. XR/XR lumbar spine f/e only [id number] IMPRESSION: 1. No fracture or malalignment. No instability or subluxation. 2. Minimal facet DJD.
== END 2021-02-21 10:57 | disposition home or self-care (01) ==
PROVIDERS: PCP Nurse Practitioner; Visit Provider Nurse Practitioner
DX: M47.816 Spondylosis without myelopathy or radiculopathy, lumbar region (principal)
CPT/HCPCS: 72120; 81025; 84702

== ENCOUNTER → 2021-03-30 13:21 | Outpatient (BNVA) | payer MEDICAID, SELFPAY | PROVIDERS: PCP Nurse Practitioner; Visit Provider Internal Medicine Rheumatology | DX: M06.041 Rheumatoid arthritis without rheumatoid factor, right hand (principal); M06.042 Rheumatoid arthritis without rheumatoid factor, left hand; Z79.899 Other long term (current) drug therapy; R76.8 Other specified abnormal immunological findings in serum; Z87.891 Personal history of nicotine dependence | CPT/HCPCS: 99214 ==

== ENCOUNTER → 2021-05-10 11:07 | Outpatient (BNVA) | payer OTHER, SELFPAY | PROVIDERS: PCP Nurse Practitioner; Visit Provider Psychiatry & Neurology Psychiatry | DX: F33.1 Major depressive disorder, recurrent, moderate (principal); F41.1 Generalized anxiety disorder; F43.12 Post-traumatic stress disorder, chronic; G47.9 Sleep disorder, unspecified | CPT/HCPCS: 99214 ==

== ENCOUNTER → 2021-05-17 15:33 | Outpatient (BNVA) | payer MEDICAID, SELFPAY | PROVIDERS: PCP Nurse Practitioner; Visit Provider Nurse Practitioner Family | DX: Z20.822 Contact with and (suspected) exposure to COVID-19 (principal) | CPT/HCPCS: 87635 ==

== ENCOUNTER → 2021-08-04 14:03 | Outpatient (BNVA) | payer MEDICAID, SELFPAY | PROVIDERS: PCP Nurse Practitioner; Visit Provider Internal Medicine Rheumatology | DX: M06.041 Rheumatoid arthritis without rheumatoid factor, right hand (principal); M06.042 Rheumatoid arthritis without rheumatoid factor, left hand; Z79.899 Other long term (current) drug therapy; R76.8 Other specified abnormal immunological findings in serum; F43.10 Post-traumatic stress disorder, unspecified; Z82.61 Family history of arthritis; Z71.89 Other specified counseling | CPT/HCPCS: 99214 ==

== ENCOUNTER → 2021-08-08 09:37 | Outpatient (BNVA) | payer MEDICAID, SELFPAY | PROVIDERS: PCP Nurse Practitioner; Visit Provider Internal Medicine Rheumatology | DX: M06.041 Rheumatoid arthritis without rheumatoid factor, right hand (principal); M06.042 Rheumatoid arthritis without rheumatoid factor, left hand; Z79.899 Other long term (current) drug therapy | CPT/HCPCS: 85025 ==

== ENCOUNTER 2021-08-16 10:21 | Outpatient (CLI) | payer MEDICAID, SELFPAY ==
--- NOTE | 2021-08-16 10:25 | MR_ITS ---
WS: [id number] MRI LUMBAR SPINE NONCONTRAST TECHNIQUE: Sagittal T1, T2 and STIR imaging. Axial T1 and T2 imaging. CLINICAL INFORMATION: LOW BACK PAIN COMPARISON: None. FINDINGS: Normal lumbar alignment. No acute compression. No high-grade central canal stenosis. L1-L2: Normal. L2-L3: No significant disc bulging. Mild facet arthropathy. Spinal canal and foramen are patent. L3-L4: Mild facet arthropathy. Spinal canal and foramen are patent. L4-L5: No significant disc bulging. Mild to moderate facet arthropathy. Spinal canal and foramen are patent. L5-S1: No significant disc bulging. Moderate facet arthropathy. Spinal canal and foramen are patent. Visualized pelvic bony structures: Normal. Paravertebral soft tissues: Normal. MR/MR lumbar spine wo con* [id number] IMPRESSION: 1. Normal lumbar alignment. No acute compression. No high-grade central canal stenosis. 2. No significant spinal canal or foraminal narrowing. 3. Mild to moderate facet arthropathy L4-L5 and L5-S1 with a small amount of e phill in the L4-L5 and L5-S1 articulating facets consistent with mild synovitis. 4. No other significant findings.
== END 2021-08-16 10:22 | disposition home or self-care (01) ==
LOC: RADSHAW 10:24
PROVIDERS: PCP Nurse Practitioner Family; Visit Provider Anesthesiology Pain Medicine
DX: M47.896 Other spondylosis, lumbar region (principal); M47.897 Other spondylosis, lumbosacral region; M65.88 Other synovitis and tenosynovitis, other site; M54.50 Low back pain, unspecified
CPT/HCPCS: 72148

== ENCOUNTER 2021-08-23 11:16 | Outpatient (CLI) | payer MEDICAID, SELFPAY ==
[2021-08-23 14:37] LABS: Alanine Aminotransferase 27 U/L (0-33); Albumin Level 4.2 g/dL (3.5-5.2); Alkaline Phosphatase 60 IU/L (35-105); Aspartate Amino Transferase 20 U/L (0-32); C Reactive Protein 3.5 mg/L (0.0-4.9); Globulin 2.8 g/dL (1.3-4.6); Glomerular Filtration Rate 78.3 mL/min (90-130); Total Bilirubin 0.3 mg/dL (0.15-1.2)
== END 2021-08-23 11:17 | disposition home or self-care (01) ==
LOC: LAB 11:28
PROVIDERS: PCP Nurse Practitioner Family; Visit Provider Internal Medicine Rheumatology
DX: M06.041 Rheumatoid arthritis without rheumatoid factor, right hand (principal); M06.042 Rheumatoid arthritis without rheumatoid factor, left hand; Z79.899 Other long term (current) drug therapy
CPT/HCPCS: 36415; 80076; 82565; 86140

== ENCOUNTER 2021-10-26 14:51 | Outpatient (CLI) | payer MEDICAID, SELFPAY ==
--- NOTE | 2021-10-26 15:07 | XR_ITS ---
WS: [id number] LEFT FOOT: 3 VIEW(S) TECHNIQUE: AP, oblique and lateral. HISTORY: S99.922A - Unspecified injury of left foot, initial encounter. COMPARISON: 11/03/2020 Acute nondisplaced fracture involving the proximal fifth metatarsal diaphysis. No displacement. Normal tarsal/metatarsal alignment. No soft tissue abnormality or bone destruction. XR/XR foot LT min 3V* [id number] IMPRESSION: Nondisplaced fracture proximal fifth metatarsal diaphysis.
== END 2021-10-26 14:52 | disposition home or self-care (01) ==
PROVIDERS: PCP Nurse Practitioner Family; Visit Provider Nurse Practitioner Family
DX: M79.89 Other specified soft tissue disorders (principal); S92.355A Nondisplaced fracture of fifth metatarsal bone, left foot, initial encounter for closed fracture; X58.XXXA Exposure to other specified factors, initial encounter
CPT/HCPCS: 73630

== ENCOUNTER → 2021-11-01 09:16 | Outpatient (BNVA) | payer MEDICAID, SELFPAY | PROVIDERS: PCP Nurse Practitioner Family; Visit Provider Obstetrics & Gynecology | DX: Z30.2 Encounter for sterilization (principal); Z20.822 Contact with and (suspected) exposure to COVID-19 | CPT/HCPCS: 87635 ==

== ENCOUNTER → 2021-11-04 13:46 | Outpatient (BNVA) | payer MEDICAID, SELFPAY | PROVIDERS: PCP Nurse Practitioner Family; Referring Provider Nurse Practitioner Family; Visit Provider Podiatrist Foot & Ankle Surgery | DX: S92.352D Displaced fracture of fifth metatarsal bone, left foot, subsequent encounter for fracture with routine healing (principal); X58.XXXD Exposure to other specified factors, subsequent encounter; M06.041 Rheumatoid arthritis without rheumatoid factor, right hand; M06.042 Rheumatoid arthritis without rheumatoid factor, left hand; Z79.899 Other long term (current) drug therapy | CPT/HCPCS: 73630; 80076; 82565; 85025; 86140 ==

== ENCOUNTER → 2021-11-08 15:10 | Outpatient (BNVA) | payer MEDICAID, SELFPAY | PROVIDERS: PCP Nurse Practitioner; Visit Provider Obstetrics & Gynecology | DX: Z20.822 Contact with and (suspected) exposure to COVID-19 (principal); Z30.2 Encounter for sterilization | CPT/HCPCS: 87635 ==

== ENCOUNTER 2021-11-09 08:41 | Day surgery (SDC) | payer MEDICAID, SELFPAY ==
--- NOTE | 2021-11-07 13:22 | ANES.PREANE2 ---
Pre-Anesthetic Assessment Pre-Anesthetic Assessment: Height/Weight: Height 1.63 m Proposed Procedure: Operation Date: 11/09/21 09:45 Proposed Procedures p Laparoscopic Salpingectomy 00518 Z30.2(Bilateral) - Luca Maynard MD Familial anesthetic complications: None Social: Social History: No alcohol and No tobacco Exam: Pre-Anes Outpt Exam: alert, oriented x 3, clear to auscultation bilaterally and regular rate & rhythm Airway: MP: 2 Dentition: False (uppers) CV/HEM: CV/HEM: HTN Musc/skel: Musc/skel: RA Anesthetic Plan: ASA status: 2 Anesthesia: General Risk of > 500 ml blood loss (7ml/kg in children): No PFSH Anesthesia PFSH: Medical History (Updated 11/07/21 @ 10:08 by Luca Maynard MD) Anxiety and depression Essential (primary) hypertension High risk medication use Immunization counseling Inflammatory arthritis Lumbar radicular pain Problems related to lack of adequate sleep Seronegative rheumatoid arthritis of both hands Surgical History History of bilateral ligation of fallopian tubes 2003 History of ectopic Right salpingectomy due to ectopic 06/17/2014 Dr. Guzmán History of reversal of tubal ligation 01/2014 Family History Father Stroke CAD (coronary artery disease) Mother Diabetes Hypertension Family/Other Cancer Aunt with cervical cancer Other Family history of premature coronary artery disease Lupus Rheumatoid arthritis Denies family history of Hyperlipidemia Chronic kidney disease (CKD) Lung disease Social History (Updated 11/07/21 @ 08:48 by Ira Linder RN) Smoking and tobacco status: former smoker Quit status (tobacco): has quit using tobacco Year quit tobacco: 10/17/2021 Alcohol intake: never Substance/Drug Use: never Marital status: Current gender identity: Female Data Anesthesia Cardiac Studies: No Data to Display
[2021-11-07 13:27] LABS: Basophils % 0.5 %; Eosinophils % 0.2 %; Hematocrit 42.5 % (37.0-47.0); Hemoglobin 13.8 g/dL (11.5-15.3); Lymphocytes # 2.9 10^3/uL (0.8-4.8); Lymphocytes % 45.1 %; Mean Corpuscular HGB Conc 32.5 g/dL (30.0-36.0); Mean Corpuscular Hemoglobin 30.5 pg (28.0-34.0); Mean Platelet Volume 10.7 fL (7.4-10.4); Monocytes # 0.7 10^3/uL (0.2-0.9); Neutrophils # 2.86 10^3/uL (1.8-7.7); Nucleated Red Blood Cells % 0 %; Platelet Count 209 10^3/cmm (130-400); Red Blood Count 4.52 10^6/uL (4.1-5.3); White Blood Count 6.5 10^3/uL (4.0-10.0)
[2021-11-07 13:33] VITALS: BMI 36.2
[2021-11-07 13:41] LABS: Add Urine Microscopic? YES; Bilirubin Urine Neg (Negative); Blood Urine Neg (Negative); Glucose Urine UA Norm (Normal); Ketones Urine Negative (Negative); Leukocyte Esterase Urine 1+ (Negative); Nitrate Urine Negative (Negative); Protein Urine Neg (Negative); Urine Appearance SL Hazy (CLEAR); Urine Color Yellow (Yellow); Urobilinogen Urine Norm (Negative); pH Urine 5 (5-7)
[2021-11-07 13:47] LABS: Alanine Aminotransferase 13 U/L (0-33); Albumin Level 4.4 g/dL (3.5-5.2); Alkaline Phosphatase 70 IU/L (35-105); Anion Gap 16.6 (5-19); Aspartate Amino Transferase 18 U/L (0-32); Blood Urea Nitrogen 8 mg/dL (6-20); Calcium 9.4 mg/dL (8.5-10.5); Carbon Dioxide 22 mmol/L (22-29); Chloride 103 mmol/L (98-107); Globulin 2.6 g/dL (1.3-4.6); Glomerular Filtration Rate 108.6 mL/min (90-130); Glucose 91 mg/dL (65-115); Osmolality Calculated 284 mOsm/kg (285-295); Potassium 3.6 mmol/L (3.5-5.1); Sodium 138 mmol/L (136-145); Total Bilirubin 0.3 mg/dL (0.15-1.2)
[2021-11-07 13:57] LABS: Add Urine Culture? No; RBC Urine 0-4 /hpf (0-2); WBC Urine 15-25 /hpf (0-5)
[2021-11-07 14:05] LABS: Bacteria Urine TRACE /hpf
[2021-11-07 19:28] LABS: OR HCG Qualitative Urine Negative (Negative)
[2021-11-09] VITALS (13 sets, daily range): BP systolic 100–129; BP diastolic 56–109; PULSE 66–115; RESP 13–16; TEMP 36.2–36.7; O2SAT 88–100
[2021-11-09 09:05] LABS: OR HCG Qualitative Urine Negative (Negative)
[2021-11-09] MEDS: scopolamine 1.5 Patch 1 PATCH TRANSDERMA (09:37)
[2021-11-09] MEDS: sodium chloride 0.9% 500 ML IV (09:37)
--- NOTE | 2021-11-09 10:05 | ANES.PAUD2 ---
Pre-Anesthetic Update Pre-Anesthetic Assessment: Date of Surgery/Procedure: 11/09/21 Preop Diagnosis: Desires permanent sterilization Proposed Procedure: Operation Date: 11/09/21 09:45 Proposed Procedures p Laparoscopic Salpingectomy 26885 Z30.2(Bilateral) - Luca Maynard MD Any changes to Pre-Anesthetic Assessment?: No Last Intake: Intake Last Liquid Date 11/08/21 Last Liquid Time 21:30 Last Solid Date 11/08/21 Last Solid Time 20:30 Labs Last 48hrs: Laboratory Results - last 48 hr 11/07/21 11/07/21 11/07/21 13:00 13:00 13:05 WBC 6.5 RBC 4.52 Hgb 13.8 Hct 42.5 MCV 94.0 MCH 30.5 MCHC 32.5 RDW 13.0 Plt Count 209 MPV 10.7 H Neut % (Auto) 44.0 Lymph % (Auto) 45.1 [place] % (Auto) 10.0 Eos % (Auto) 0.2 Baso % (Auto) 0.5 Neut # (Auto) 2.86 Lymph # (Auto) 2.9 [place] # (Auto) 0.7 Eos # (Auto) 0.0 Baso # (Auto) 0.0 Nucleated RBC % (a uto) 0 Nucleated RBCs # 0.0 Sodium Potassium Chloride Carbon Dioxide Anion Gap BUN Creatinine GFR Calculation Glucose Calculated Osmolal ity Calcium Total Bilirubin AST ALT Alkaline Phosphata se Total Protein Albumin Globulin Urine Color Yellow Urine Appearance Sl hazy Urine pH 5 Ur Specific Gravit y 1.010 Urine Protein Neg Urine Glucose (UA) Norm Urine Ketones Negative Urine Blood Neg Urine Nitrate Negative Urine Bilirubin Neg Urine Urobilinogen Norm Ur Leukocyte [place] ase 1+ H Urine RBC 0-4 H Urine WBC 15-25 H Ur Squamous Epith Cells 10-15 H Amorphous Sediment Not Reportable Urine Bacteria Trace Urine HCG, Qual Negative Blood Type Rho(D) Type Antibody Screen 11/07/21 11/07/21 11/09/21 13:05 13:05 08:56 WBC RBC Hgb Hct MCV MCH MCHC RDW Plt Count MPV Neut % (Auto) Lymph % (Auto) [place] % (Auto) Eos % (Auto) Baso % (Auto) Neut # (Auto) Lymph # (Auto) [place] # (Auto) Eos # (Auto) Baso # (Auto) Nucleated RBC % (a uto) Nucleated RBCs # Sodium 138 Potassium 3.6 Chloride 103 Carbon Dioxide 22 Anion Gap 16.6 BUN 8 Creatinine 0.6 GFR Calculation 108.6 Glucose 91 Calculated Osmolal ity 284 L Calcium 9.4 Total Bilirubin 0.3 AST 18 ALT 13 Alkaline Phosphata se 70 Total Protein 7.0 Albumin 4.4 Globulin 2.6 Urine Color Urine Appearance Urine pH Ur Specific Gravit y Urine Protein Urine Glucose (UA) Urine Ketones Urine Blood Urine Nitrate Urine Bilirubin Urine Urobilinogen Ur Leukocyte [place] ase Urine RBC Urine WBC Ur Squamous Epith Cells Amorphous Sediment Urine Bacteria Urine HCG, Qual Negative Blood Type O Positive Rho(D) Type Positive Antibody Screen Negative Vitals: Temperature 97.7 F 11/09/21 08:49 Pulse Rate 73 11/09/21 08:49 Pulse Rhythm 11/09/21 08:52 Pulse Strength 3+ Normal 11/09/21 08:52 Respiratory Rate 16 11/09/21 08:49 Blood Pressure 115/74 11/09/21 08:49 Blood Pressure [place] n 87 11/09/21 08:49 Pulse Oximetry 99 11/09/21 08:49 Oxygen Delivery Me thod 11/09/21 08:52 Exam: Pre-Anes Outpt Exam: alert, oriented x 3, clear to auscultation bilaterally and regular rate & rhythm Cardiac Studies: No Data to Display
[2021-11-09] MEDS: fentaNYL 50 mcg/mL INJ 2mL IVP ×2 (10:12→11:58)
[2021-11-09] MEDS: midazolam 1 mg/mL INJ 2 mL 2 MG IVP (10:13)
--- NOTE | 2021-11-09 10:16 | W.PM.OPSUD ---
Surgery/Procedure H&P Update DATE OF PROCEDURE: November 09, 2021 DATE H&P PERFORMED: 11/07/21 H&P UPDATE INFORMATION: I have reviewed H&P completed within last 30 days, I have examined patient prior to procedure and No changes to prior documentation PREOP DIAGNOSIS: Desires permanent sterilization PLANNED PROCEDURE: Operation Date: 11/09/21 09:45 Proposed Procedures p Laparoscopic Salpingectomy 27032 Z30.2(Bilateral) - Luca Maynard MD
[2021-11-09] MEDS: sodium chloride 0.9% 1,000 ML 30 ML IV (10:25)
--- NOTE | 2021-11-09 11:35 | P.OP_ITS ---
Operative Report Date of procedure: November 09, 2021 Pre-op Diagnosis: Desires permanent sterilization Post-op diagnosis: same Post-op Findings: Partial right fallopian tube Procedure Done: Laparoscopic bilateral salpingectomy Specimens removed/disposition: Left fallopian tube. Right fallopian tube remnant Pathology: Left and right fallopian tube Surgeon: Luca Maynard MD Anesthesia: General Estimated blood loss (mL): 5 IV fluids (mL): 750 Urine output (mL): 50 Complications: None Condition: stable Disposition: PACU Procedure: After informed consent, the patient was taken to the operating room where general anesthesia was administered. She was placed in the dorsal lithotomy position and prepped and draped in sterile fashion. Pre-Procedure Time-Out verifying the correct patient identity, correct procedure verified with consent, correct site and side, correct patient position, availability of correct implants and any special equipment or requirements was performed and acknowledge by the OR team. The patient was examined under anesthesia and found to have a normal uterus with normal adnexa. A Wan catheter was placed. A bivalve speculum was placed in the vagina, and the anterior lip of cervix was grasped with the single toothed tenaculum. A uterine manipulator was advanced into the endocervical canal and uterus. The tenaculum was removed after uterine manipulator was secured. The speculum was removed from the vagina. An intraumbilical incision was made with a scalpel. While tenting up on the abdomen, a Verres needle was admitted into the intra-abdominal cavity. A saline drop test was performed and noted to be within normal limits. Pneumoperitoneum was attained with 4 liters of carbon dioxide. The Verres needle was removed. A 5 mm Opitc view trocar and sleeve were admitted into the abdomen and laparoscopic confirmation of location was achieved. A second incision was made 3 cm above the symphysis pubis, and a 5 mm trocar sleeves were admitted into the abdomen under direct laparoscopic visualization without complication. A survey revealed normal abdominal anatomy with the exception of string adhesion to the right lower anterior abdominal wall. A 5 mm blunt probe was advanced through the second trocar sleeve, and light manipulation of ovaries and uterus to assess the posterior aspects was performed. The pelvic survey shows normal uterus, normal left adnexa and partial right fallopian tube. The left ovary was noted with a follicular cyst. The patient was placed into Trendelenburg position. The fallopian tubes were inspected bilaterally and the fimbriated ends of the fallopian tubes were visualized bilaterally. Attention was then directed to the right side. The fallopian tube and mesosalpinx were grasped and the underlying mesosalpinx was cauterized and cut using the Voyant device. Serial cauterization and cutting was used to separate the fallopian tube from the underlying mesosalpinx until it could be amputated cutting it approximated 2 cm from the cornua. Attention was then turned to the contralateral left fallopian tube, which was removed in similar fashion. Both specimens were removed through the trocar and sent to pathology. The instruments were removed. The suprapubic trocar port was removed under direct visualization insuring good hemostasis. The carbon dioxide was allowed to escape from the abdomen. The intraumbilical trocar sleeve was w ithdrawn under visualization with laparoscope in the sleeve to insure hemostasis. The skin incisions were closed with 3-O Monocryl subcuticular stich and Dermabond. The instruments were removed from the vagina, and excellent hemostasis was noted. The patient tolerated the procedure well, and sponge, lap and needle count were correct times two. The patient was taken to the recovery room in good condition.
[2021-11-09] MEDS: HYDROcodone-acetaminophen 5-325 mg Tablet 1 TAB PO (12:44)
--- NOTE | 2021-11-09 13:55 | ANE.PACU2 ---
Inpatient post-anesthesia follow up: Airway intact: Yes Vital signs: Temperature 98.1 F Pulse Rate 70 Respiratory Rate 16 Blood Pressure 100/56 Pulse Oximetry 99 Oxygen Delivery Me thod Room Air Oxygen Flow Rate Fraction of Inspir ed Oxygen Hydration adequate: Yes Nausea and vomiting: No Pain level: 2 Mental status: Baseline
== END 2021-11-09 13:10 | disposition home or self-care (01) ==
PROVIDERS: Anesthesiology; PCP Nurse Practitioner; Visit Provider Obstetrics & Gynecology
PROC: (CPT 58661; principal; 2021-11-09 09:45)
DX: Z30.2 Encounter for sterilization (principal); I10 Essential (primary) hypertension; M06.9 Rheumatoid arthritis, unspecified; F41.9 Anxiety disorder, unspecified; F32.9 Major depressive disorder, single episode, unspecified; Z79.899 Other long term (current) drug therapy; Z82.49 Family history of ischemic heart disease and other diseases of the circulatory system; Z83.3 Family history of diabetes mellitus; Z87.891 Personal history of nicotine dependence
CPT/HCPCS: 58661; 36415; 80053; 81001; 84703; 85025; 86850; 86900; 88302; 96374; J0690; J1100; J2250; J2405; J2704; J2710; J3010; J3490; J7030; J7040

== ENCOUNTER → 2021-11-22 13:52 | Outpatient (BNVA) | payer MEDICAID, SELFPAY | PROVIDERS: PCP Nurse Practitioner; Visit Provider Podiatrist Foot & Ankle Surgery | DX: S92.355A Nondisplaced fracture of fifth metatarsal bone, left foot, initial encounter for closed fracture (principal); X58.XXXA Exposure to other specified factors, initial encounter | CPT/HCPCS: 73630 ==

== ENCOUNTER → 2021-11-24 15:05 | Outpatient (BNVA) | payer MEDICAID, SELFPAY | PROVIDERS: PCP Nurse Practitioner; Visit Provider Nurse Practitioner Family | DX: Z20.822 Contact with and (suspected) exposure to COVID-19 (principal) | CPT/HCPCS: 87635 ==

== ENCOUNTER → 2021-12-12 09:41 | Outpatient (BNVA) | payer MEDICAID, SELFPAY | PROVIDERS: PCP Nurse Practitioner; Visit Provider Podiatrist Foot & Ankle Surgery | DX: S92.355A Nondisplaced fracture of fifth metatarsal bone, left foot, initial encounter for closed fracture (principal); X58.XXXA Exposure to other specified factors, initial encounter | CPT/HCPCS: 73630 ==

== ENCOUNTER → 2021-12-20 11:18 | Outpatient (BNVA) | payer MEDICAID, SELFPAY | PROVIDERS: PCP Nurse Practitioner; Visit Provider Internal Medicine Rheumatology | DX: M06.041 Rheumatoid arthritis without rheumatoid factor, right hand (principal); M06.042 Rheumatoid arthritis without rheumatoid factor, left hand; Z79.899 Other long term (current) drug therapy; R76.8 Other specified abnormal immunological findings in serum; F43.12 Post-traumatic stress disorder, chronic; G47.9 Sleep disorder, unspecified; Z82.61 Family history of arthritis | CPT/HCPCS: 99214 ==

== ENCOUNTER → 2022-01-11 11:04 | Outpatient (BNVA) | payer MEDICAID, SELFPAY | PROVIDERS: PCP Nurse Practitioner; Visit Provider Podiatrist Foot & Ankle Surgery | DX: S92.352A Displaced fracture of fifth metatarsal bone, left foot, initial encounter for closed fracture (principal); X58.XXXA Exposure to other specified factors, initial encounter | CPT/HCPCS: 73630 ==

== ENCOUNTER → 2022-01-13 13:58 | Outpatient (BNVA) | payer MEDICAID, SELFPAY | PROVIDERS: PCP Nurse Practitioner; Visit Provider Nurse Practitioner Family | DX: R50.9 Fever, unspecified (principal); J06.9 Acute upper respiratory infection, unspecified | CPT/HCPCS: 87400 ==

== ENCOUNTER → 2022-02-13 10:57 | Outpatient (BNVA) | payer MEDICAID, SELFPAY | PROVIDERS: PCP Nurse Practitioner; Visit Provider Podiatrist Foot & Ankle Surgery | DX: S92.355D Nondisplaced fracture of fifth metatarsal bone, left foot, subsequent encounter for fracture with routine healing (principal); X58.XXXD Exposure to other specified factors, subsequent encounter; Z87.891 Personal history of nicotine dependence | CPT/HCPCS: 73630; 99214 ==

== ENCOUNTER → 2022-03-13 11:14 | Outpatient (BNVA) | payer MEDICAID, SELFPAY | PROVIDERS: PCP Nurse Practitioner; Visit Provider Nurse Practitioner | DX: Z72.820 Sleep deprivation (principal); F33.1 Major depressive disorder, recurrent, moderate; M54.16 Radiculopathy, lumbar region; M06.041 Rheumatoid arthritis without rheumatoid factor, right hand; M06.042 Rheumatoid arthritis without rheumatoid factor, left hand; Z79.899 Other long term (current) drug therapy | CPT/HCPCS: 80076; 82565; 85025; 86140 ==

== ENCOUNTER → 2022-04-11 12:58 | Outpatient (BNVA) | payer MEDICAID, SELFPAY | PROVIDERS: PCP Nurse Practitioner; Visit Provider Family Medicine | DX: E88.81 Metabolic syndrome and other insulin resistance (principal); F41.9 Anxiety disorder, unspecified; F32.9 Major depressive disorder, single episode, unspecified; R68.89 Other general symptoms and signs | CPT/HCPCS: 80053; 80061; 83036; 84443; 85025 ==

== ENCOUNTER 2022-04-17 09:56 | Emergency (ER) | payer MEDICAID, SELFPAY ==
[2022-04-17 10:18] VITALS: BP 133/67; PULSE 100; RESP 20; TEMP 37.2; O2SAT 98; BMI 36.0
[2022-04-17 11:03] VITALS: BP 103/63; PULSE 76; RESP 18; O2SAT 96
[2022-04-17 11:04] LABS: Add Urine Microscopic? NO; Charge for UA Resulting for Rev
[2022-04-17 11:21] LABS: Basophils % 0.2 %; Hemoglobin 12.9 g/dL (11.5-15.3); Lymphocytes # 0.8 10^3/uL (0.8-4.8); Lymphocytes % 4.6 %; Mean Corpuscular HGB Conc 33.1 g/dL (30.0-36.0); Mean Corpuscular Hemoglobin 30.7 pg (28.0-34.0); Mean Corpuscular Volume 92.9 fl (81-99); Mean Platelet Volume 9.9 fL (7.4-10.4); Monocytes # 1.3 10^3/uL (0.2-0.9); Monocytes % 7.8 %; Neutrophils # 14.36 10^3/uL (1.8-7.7); Neutrophils % 86.9 %; Nucleated Red Blood Cells % 0 %; Platelet Count 187 10^3/cmm (130-400); Red Cell Distribution Width 12.3 % (12.1-15.1); White Blood Count 16.5 10^3/uL (4.0-10.0)
[2022-04-17] MEDS: ondansetron 2 mg/ML SDV 2 mL 4 MG IVP (11:29)
[2022-04-17 11:30] VITALS: RESP 18; O2SAT 96
[2022-04-17] MEDS: morphine 4 mg/mL SDV 1 mL IVP (11:30)
[2022-04-17 11:39] LABS: Alanine Aminotransferase 14 U/L (0-33); Albumin Level 4.4 g/dL (3.5-5.2); Alkaline Phosphatase 68 IU/L (35-105); Anion Gap 14.2 (5-19); Aspartate Amino Transferase 18 U/L (0-32); Blood Urea Nitrogen 12 mg/dL (6-20); Calcium 8.9 mg/dL (8.5-10.5); Carbon Dioxide 23 mmol/L (22-29); Chloride 101 mmol/L (98-107); Globulin 2.4 g/dL (1.3-4.6); Glomerular Filtration Rate 90.9 mL/min (90-130); Glucose 115 mg/dL (65-115); Osmolality Calculated 281 mOsm/kg (285-295); Potassium 3.2 mmol/L (3.5-5.1); Sodium 135 mmol/L (136-145); Total Bilirubin 0.3 mg/dL (0.15-1.2); Total Protein 6.8 g/dL (6.6-8.7)
[2022-04-17 11:48] LABS: Bilirubin Urine Neg (Negative); Blood Urine Neg (Negative); Glucose Urine UA Norm (Normal); Ketones Urine Negative (Negative); Leukocyte Esterase Urine Negative (Negative); Nitrate Urine Negative (Negative); Protein Urine Neg (Negative); Specific Gravity, Urine 1.015 (1.005-1.030); Sulfosalicylic Acid Urine Negative (Negative); Urine Appearance Clear (CLEAR); Urine Color Yellow (Yellow); Urobilinogen Urine Norm (Negative); pH Urine 9 (5-7)
--- NOTE | 2022-04-17 11:53 | W.ED.GENADLT ---
HPI - General Adult General: Chief complaint: General Medical Stated complaint: pain all over Time Seen by Provider: 04/17/22 10:50 Source: patient Mode of arrival: ambulatory Limitations: no limitations History of Present Illness: 46-year-old female known history rheumatoid arthritis progressively worsening generalized pain particularly isolates it to her hands and elbows somewhat less to her knees and ankles. She denies any fever sweats or chills she is on Humira and methotrexate. She is also on prednisone. She denies any fever sweats chills shortness of breath cough chest pain or abdominal pain Onset (ago): day(s) Location: upper extremity and lower extremity Severity: severe Quality: aching Pain Consistency: constant Relieving factors: none Exacerbating factors: none Associated symptoms: Deny chest pain, confusion, cough, diaphoresis, decreased appetite, dyspnea, fevers/chills, headache(s), malaise, nausea, rash, palpitations, seizures, short of breath, syncope, vomiting or weakness Treatments prior to arrival: none Review of Systems Const: Denies: fever(s), chills, fatigue, malaise or diaphoresis ENMT: Denies: throat pain, ear or mastoid pain, nasal discharge or nasal congestion Card: Denies: chest pain, palpitations or syncope Resp: Denies: dyspnea GI: Denies: abdominal pain, nausea, vomiting, hematemesis, diarrhea, constipation or bloating : Denies: flank pain, difficulty voiding, dysuria, urinary frequency or urinary urgency Musc: Reports: extremity pain, joint pain and joint swelling Skin/Breast: Denies: rash Neuro: Denies: headache(s) or confusion PFSH ED PFSH: Medical History Anxiety and depression Essential (primary) hypertension High risk medication use Immunization counseling Inflammatory arthritis Lumbar radicular pain Problems related to lack of adequate sleep Psychiatric care Seronegative rheumatoid arthritis of both hands Surgical History History of bilateral ligation of fallopian tubes 2002 History of ectopic Right salpingectomy due to ectopic 06/17/2014 Dr. Guzmán History of reversal of tubal ligation 01/2014 Family History Father Stroke CAD (coronary artery disease) Mother Diabetes Hypertension Family/Other Cancer Aunt with cervical cancer Other Family history of premature coronary artery disease Lupus Rheumatoid arthritis Denies family history of Hyperlipidemia Chronic kidney disease (CKD) Lung disease Social History Smoking and tobacco status: never smoked Quit status (tobacco): has quit using tobacco Year quit tobacco: 10/17/2021 Second hand smoke exposure: No Smoking risk assessment/counseling performed?: No Alcohol intake: unknown Desire information about alcohol rehabilitation?: No Counseling given: No Desire information about substance/drug rehabilitation?: No Counseling given: No Adopted: No Caregiver/support person: No Lives independently: Yes Household members: spouse Housing: House Marital status: service: No Current occupational status: employed Current gender identity: Female Female Reproductive History: Date of last menstrual period: 10/18/21 Physical Exam Const: COMMON NORMALS: no acute distress GENERAL APPEARANCE: cooperative and comfortable ORIENTATION/CONSCIOUSNESS: Yes awake, Yes oriented to person, Yes oriented to place and Yes oriented to time HENMT: COMMON NORMALS: normocephalic, atraumatic and hearing grossly normal bilaterally HEAD & SCALP: normocephalic and atraumatic Neck/C-Spine: COMMON NORMALS: no JVD Resp: COMMON NORMALS: normal respiratory effort, No retractions, No use of accessory muscles and clear to auscultation bilaterally AUSCULTATION: clear to auscultation bilaterally Cardio: COMMON NORMALS: no JVD, regular rate, regular rhythm and No murmurs present (Cardio) RATE: regular rate RHYTHM: regular rhythm GI: COMMON NORMALS: Soft to palpation and No hepatosplenomegaly present AUSCULTATION: Yes normoactive bowel sounds PALPATION: Yes Soft to palpation, No Tenderness to palpation present (GI), No Guarding due to palpation present (GI) and Yes No hepatosplenomegaly present Extremity: COMMON NORMALS: capillary refill normal, no clubbing, cyanosis or edema, no calf tenderness and no pedal edema OTHER: Joint effusions in the interphalangeal and metacarpal phalangeal joints as well as the wrist and elbows somewhat in the ankles and knees. Neuro: SENSORIUM/ORIENTATION: Yes oriented to person, Yes oriented to place and Yes oriented to time Skin: COMMON NORMALS: no rashes or lesions noted GENERAL SKIN EXAM: no rashes or lesions noted Course Vital Signs: Vital signs: Vital Signs Temperature 98.7 F 04/17/22 12:12 Pulse Rate 91 04/17/22 12:12 Respiratory Rate 18 04/17/22 12:12 Blood Pressure 135/81 04/17/22 12:12 Pulse Oximetry 96 04/17/22 12:12 MDM - General Adult Medical Decision Making Steroid taper. Continue other medication occluding her pain medications and follow-up with rheumatology in 2 days at the scheduled recommend she keep that if she has any fever she return to the emergency room. Use the increased dose of steroids starting this evening she was given a IV steroid push while in the emergency room. Medical Records I reviewed the patient's medical records. Lab Data I reviewed the patient's lab results. : 04/17/22 10:55 04/17/22 10:55 Laboratory Results WBC 16.5 10^3/uL (4.0-10.0) H 04/17/22 10:55 RBC 4.20 10^6/uL (4.1-5.3) 04/17/22 10:55 Hgb 12.9 g/dL (11.5-15.3) 04/17/22 10:55 Hct 39.0 % (37.0-47.0) 04/17/22 10:55 MCV 92.9 fl (81-99) 04/17/22 10:55 MCH 30.7 pg (28.0-34.0) 04/17/22 10:55 MCHC 33.1 g/dL (30.0-36.0) 04/17/22 10:55 RDW 12.3 % (12.1-15.1) 04/17/22 10:55 Plt Count 187 10^3/cmm (130-400) 04/17/22 10:55 MPV 9.9 fL (7.4-10.4) 04/17/22 10:55 Neut % (Auto) 86.9 % 04/17/22 10:55 Lymph % (Auto) 4.6 % 04/17/22 10:55 [place] % (Auto) 7.8 % 04/17/22 10:55 Eos % (Auto) 0.0 % 04/17/22 10:55 Baso % (Auto) 0.2 % 04/17/22 10:55 Neut # (Auto) 14.36 10^3/uL (1.8-7.7) H 04/17/22 10:55 Lymph # (Auto) 0.8 10^3/uL (0.8-4.8) 04/17/22 10:55 [place] # (Auto) 1.3 10^3/uL (0.2-0.9) H 04/17/22 10:55 Eos # (Auto) 0.0 10^3/uL (0.0-0.8) 04/17/22 10:55 Baso # (Auto) 0.0 10^3/uL (0.0-0.1) 04/17/22 10:55 Nucleated RBC % (auto) 0 % 04/17/22 10:55 Nucleated RBCs # 0.0 /100WBC 04/17/22 10:55 Sodium 135 mmol/L (136-145) L 04/17/22 10:55 Potassium 3.2 mmol/L (3.5-5.1) L 04/17/22 10:55 Chloride 101 mmol/L (98-107) 04/17/22 10:55 Carbon Dioxide 23 mmol/L (22-29) 04/17/22 10:55 Anion Gap 14.2 (5-19) 04/17/22 10:55 BUN 12 mg/dL (6-20) 04/17/22 10:55 Creatinine 0.7 mg/dL (0.5-0.9) 04/17/22 10:55 GFR Calculation 90.9 mL/min (90-130) 04/17/22 10:55 Glucose 115 mg/dL (65-115) 04/17/22 10:55 Calculated Osmolality 281 mOsm/kg (285-295) L 04/17/22 10:55 Calcium 8.9 mg/dL (8.5-10.5) 04/17/22 10:55 Total Bilirubin 0.3 mg/dL (0.15-1.2) 04/17/22 10:55 AST 18 U/L (0-32) 04/17/22 10:55 ALT 14 U/L (0-33) 04/17/22 10:55 Alkaline Phosphatase 68 IU/L (35-105) 04/17/22 10:55 Total Protein 6.8 g/dL (6.6-8.7) 04/17/22 10:55 Albumin 4.4 g/dL (3.5-5.2) 04/17/22 10:55 Globulin 2.4 g/dL (1.3-4.6) 04/17/22 10:55 Urine Color Yellow (Yellow) 04/17/22 11:00 Urine Appearance Clear (CLEAR) 04/17/22 11:00 Urine pH 9 (5-7) H 04/17/22 11:00 Ur Specific [place] 1.015 (1.005-1.030) 04/17/22 11:00 Urine Protein Neg (Negative) 04/17/22 11:00 Urine Glucose (UA) Norm (Normal) 04/17/22 11:00 Urine Ketones Negative (Negative) 04/17/22 11:00 Urine Blood Neg (Negative) 04/17/22 11:00 Urine Nitrate Negative (Negative) 04/17/22 11:00 Urine Bilirubin Neg (Negative) 04/17/22 11:00 Prot Sulfosalicylic Acd Negative (Negative) 04/17/22 11:00 Urine Urobilinogen Norm mg/dL (Negative) 04/17/22 11:00 Ur Leukocyte Esterase Negative (Negative) 04/17/22 11:00 Discharge Plan Discharge Patient Disposition: Home Clinical Impression: Seronegative rheumatoid arthritis of both hands Condition: Stable Prescriptions: New prednisone 20 mg tablet 20 mg PO TID Qty: 15 0RF Rx Instructions: 1 p.o. 3 times daily x3 days, 1 p.o. twice daily x2 days, 1 p.o. daily x2 days Held prednisone 10 mg tablet 10 mg PO DAILY Qty: 90 1RF Hold Instructions: Resume on 04/25/22. No Action multivitamin Tablet 1 tab PO DAILY 0RF eszopiclone [Lunesta] 3 mg tablet 3 mg PO .qhs 30 Days Qty: 30 5RF trazodone 100 mg tablet See Rx Instructions PO .qhs 30 Days Qty: 60 5RF Rx Instructions: 100mg at bedtime may repeat in 4 hours if needed PO .qhs; zonisamide [Zonegran] 25 mg capsule 75 mg PO BID Qty: 180 5RF folic acid 1 mg tablet 3 mg PO DAILY Qty: 90 3RF hydroxychloroquine 200 mg tablet 200 mg PO BID Qty: 60 3RF Rx Instructions: do not start same day as the Leflunomide methotrexate sodium 2.5 mg tablet 10 mg PO .Q7days Qty: 20 3RF Rx Instructions: take 4 tabs on same day once a week only. pantoprazole 40 mg tablet,delayed release (DR/EC) 40 mg PO DAILY Qty: 30 3RF sulfasalazine 500 mg tablet 1 g PO BID Qty: 120 3RF Rx Instructions: give with food (meal/snack) hydrocodone-acetaminophen 7.5-325 mg tablet 1 tab PO Q4H PRN (Reason: Pain (Scale Score 7-10)) 0RF cholecalciferol (vitamin D3) 25 mcg (1,000 unit) capsule 25 mcg PO DAILY Qty: 30 2RF (DME) Carbon Fiber Left Foot Plate See Rx Instructions .Route .MEDSUPPLY Qty: 1 0RF Rx Instructions: As directed (DME) diabetic shoes with custom molded orthotics See Rx Instructions .Route .MEDSUPPLY Qty: 1 0RF Rx Instructions: As directed Ozempic 0.25 mg or 0.5 mg(2 mg/1.5 mL) pen injector 0.25 mg SUBCUT .COMPLEX Qty: 1.5 3RF Rx Instructions: 0.25 mg SUBCUT Weekly for one month, then increase to 0.5 weekly; ondansetron HCl 4 mg tablet 4 mg PO Q8H PRN (Reason: nausea and vomiting) Qty: 30 2RF venlafaxine [Effexor XR] 150 mg capsule,extended release 24hr 150 mg PO DAILY Qty: 30 3RF buspirone 10 mg tablet 10 mg PO BID Qty: 60 1RF (DME) Orthopedic shoes with inserts See Rx Instructions .Route .MEDSUPPLY Qty: 1 0RF Rx Instructions: As directed by [facility]AD[facility] Abhishek Pen 40 mg/0.8 mL pen injector kit 40 mg SUBCUT Q7D Qty: 4 3RF acetaminophen 325 mg capsule 325 mg PO Q4H PRN (Reason: fever or pain) Qty: 60 0RF Vitamin C 500 mg tablet 1,000 mg PO DAILY 0RF Oyster Shell Calcium-Vit D3 500 mg(1,250mg) -200 unit tablet 2 tab PO DAILY 0RF Colace 50 mg Capsule 50 mg PO BID 0RF Discharge Orders: Discharge ED (Routine); Ordered 04/17/22 Ordered By: Philip Cantu Referrals: Arjun De La Fuente, [facility] [Primary Care Provider] - Discharge Diet: Usual diet Discharge Activity: Limit activity as instructed Patient Instructions: Opioid Safety Activity Restrictions/Additional Instructions: Follow-up with rheumatology as scheduled in 2 days. Use previously prescribed pain medications. Coding Level of Care Code ED Senior Research Engineer for Kush Frankel
[2022-04-17 12:00] VITALS: BP 133/85; PULSE 88; O2SAT 94
[2022-04-17 12:12] VITALS: BP 135/81; PULSE 91; RESP 18; TEMP 37.1; O2SAT 96
== END 2022-04-17 12:20 | disposition home or self-care (01) ==
PROVIDERS: Emergency Provider Family Medicine; PCP Nurse Practitioner
DX: M06.042 Rheumatoid arthritis without rheumatoid factor, left hand (principal); M06.041 Rheumatoid arthritis without rheumatoid factor, right hand; I10 Essential (primary) hypertension; Z87.891 Personal history of nicotine dependence
CPT/HCPCS: 80053; 81003; 85025; 96374; 96375; 99284; J2270; J2405; J2930

== ENCOUNTER → 2022-04-19 10:51 | Outpatient (BNVA) | payer MEDICAID, SELFPAY | PROVIDERS: PCP Nurse Practitioner; Visit Provider Internal Medicine Rheumatology | DX: M06.041 Rheumatoid arthritis without rheumatoid factor, right hand (principal); M06.042 Rheumatoid arthritis without rheumatoid factor, left hand; Z79.899 Other long term (current) drug therapy; F43.10 Post-traumatic stress disorder, unspecified; E87.6 Hypokalemia; Z82.61 Family history of arthritis; Z71.89 Other specified counseling | CPT/HCPCS: 99214 ==

== ENCOUNTER → 2022-06-15 10:30 | Outpatient (BNVA) | payer MEDICAID, SELFPAY | PROVIDERS: PCP Nurse Practitioner; Visit Provider Nurse Practitioner Family | DX: M54.9 Dorsalgia, unspecified (principal); N39.0 Urinary tract infection, site not specified | CPT/HCPCS: 81000 ==

== ENCOUNTER → 2022-07-13 12:45 | Outpatient (BNVA) | payer MEDICAID, SELFPAY | PROVIDERS: PCP Nurse Practitioner; Visit Provider Family Medicine | DX: M54.50 Low back pain, unspecified (principal); B34.9 Viral infection, unspecified | CPT/HCPCS: 87635 ==

== ENCOUNTER → 2022-08-07 12:59 | Outpatient (BNVA) | payer MEDICAID, SELFPAY | PROVIDERS: PCP Nurse Practitioner; Visit Provider Family Medicine | DX: M54.9 Dorsalgia, unspecified (principal); R10.2 Pelvic and perineal pain | CPT/HCPCS: 80048; 81003; 85025 ==

== ENCOUNTER → 2022-08-16 10:22 | Outpatient (BNVA) | payer MEDICAID, SELFPAY | PROVIDERS: PCP Family Medicine; Visit Provider Podiatrist Foot & Ankle Surgery | DX: S92.355D Nondisplaced fracture of fifth metatarsal bone, left foot, subsequent encounter for fracture with routine healing (principal); X58.XXXD Exposure to other specified factors, subsequent encounter | CPT/HCPCS: 73630 ==

== ENCOUNTER → 2022-09-25 12:58 | Outpatient (BNVA) | payer MEDICAID, SELFPAY | PROVIDERS: PCP Family Medicine; Visit Provider Nurse Practitioner Family | DX: R50.9 Fever, unspecified (principal) | CPT/HCPCS: 87400; 87426 ==

== ENCOUNTER 2022-11-06 10:33 | Outpatient (CLI) | payer MEDICAID, SELFPAY ==
--- NOTE | 2022-11-06 10:41 | MR_ITS ---
WS: [id number] MRI LUMBAR SPINE NONCONTRAST TECHNIQUE: Sagittal T1, T2 and STIR imaging. Axial T1 and T2 imaging. CLINICAL INFORMATION: VERTEBROGENIC LOW BACK PAIN COMPARISON: MRI August 16, 2021 FINDINGS: Mild lumbar curve. No acute compression. No high-grade central canal stenosis. L1-L2: Normal. L2-L3: Normal. L3-L4: No significant disc bulging. Mild facet arthropathy. Spinal canal and foramen are patent. L4-L5: Mild annular bulging with slight narrowing of the subarticular recess. Slight effacement of ve ntral thecal sac. Mild facet arthropathy. Spinal canal and foramen are patent. L5-S1: No significant disc bulging. Mild facet arthropathy. Spinal canal and foramen are patent. Visualized pelvic bony structures: Normal. Paravertebral soft tissues: Normal. MR/MR lumbar spine wo con* [id number] IMPRESSION: 1. Mild lumbar curve. No acute compression. No high-grade central canal stenos is. 2. Mild annular bulging L4-L5 slightly progressed compared to previous with sl ight effacement of ventral thecal sac. Mild narrowing of the LEFT greater than RIGHT subarticular recess with slight encroachment on traversing L5 nerve roots . 3. Mild facet arthropathy L3-L5 similar to previous. Previously described syno vitis has improved. 4. No other significant changes compared to previous.
== END 2022-11-06 10:34 | disposition home or self-care (01) ==
LOC: RAD 10:36
PROVIDERS: PCP Family Medicine; Visit Provider Anesthesiology Pain Medicine
DX: M51.26 Other intervertebral disc displacement, lumbar region (principal); M47.816 Spondylosis without myelopathy or radiculopathy, lumbar region
CPT/HCPCS: 72148

== ENCOUNTER → 2022-11-08 15:38 | Outpatient (BNVA) | payer MEDICAID, SELFPAY | PROVIDERS: PCP Family Medicine; Visit Provider Nurse Practitioner Family | DX: J02.9 Acute pharyngitis, unspecified (principal); R05.9 Cough, unspecified; J32.9 Chronic sinusitis, unspecified | CPT/HCPCS: 87071; 87400; 87426; 87880 ==

== ENCOUNTER → 2022-12-25 12:20 | Outpatient (BNVA) | payer MEDICAID, SELFPAY | PROVIDERS: PCP Family Medicine; Visit Provider Internal Medicine Rheumatology | DX: M06.041 Rheumatoid arthritis without rheumatoid factor, right hand (principal); M06.042 Rheumatoid arthritis without rheumatoid factor, left hand; Z79.899 Other long term (current) drug therapy; Z71.89 Other specified counseling | CPT/HCPCS: 36415; 80076; 82565; 82607; 82728; 83540; 83550; 85025; 86140 ==

== ENCOUNTER → 2023-01-16 14:43 | Outpatient (BNVA) | payer MEDICAID, SELFPAY | PROVIDERS: PCP Family Medicine; Visit Provider Obstetrics & Gynecology | DX: Z12.39 Encounter for other screening for malignant neoplasm of breast (principal); N73.9 Female pelvic inflammatory disease, unspecified; Z00.00 Encounter for general adult medical examination without abnormal findings | CPT/HCPCS: 83001 ==

== ENCOUNTER 2023-01-23 15:33 | Outpatient (CLI) | payer MEDICAID, SELFPAY ==
--- NOTE | 2023-01-23 15:39 | MM_ITS ---
WS: [id number] VIEWS: MLO and CC views both breasts. 3D digital tomosynthesis is also included in this exam. No comparisons Findings: There was no sign of mass, architectural distortion or suspicious calcification in either breast. Sc attered fibroglandular densities in both breasts. MM/[place] [id number] Impression: BI-RADS: 2-Benign FOLLOW-UP: 1 Year Follow-up This mammogram was also analyzed by the Computer Aided Detection System R2 Imag e [employer]ting [employer] Manager.
== END 2023-01-23 15:34 | disposition home or self-care (01) ==
LOC: RAD 15:34
PROVIDERS: PCP Family Medicine; Visit Provider Obstetrics & Gynecology
DX: Z12.31 Encounter for screening mammogram for malignant neoplasm of breast (principal)
CPT/HCPCS: 77063; 77067

== ENCOUNTER → 2023-01-31 08:20 | Outpatient (BNVA) | payer MEDICAID, SELFPAY | PROVIDERS: PCP Family Medicine; Visit Provider Obstetrics & Gynecology | DX: N94.6 Dysmenorrhea, unspecified (principal) | CPT/HCPCS: 76830 ==

== ENCOUNTER → 2023-03-07 15:32 | Outpatient (BNVA) | payer MEDICAID, SELFPAY | PROVIDERS: PCP Family Medicine; Visit Provider Family Medicine | DX: L65.9 Nonscarring hair loss, unspecified (principal) | CPT/HCPCS: 84443 ==

== ENCOUNTER → 2023-03-28 15:34 | Outpatient (BNVA) | payer OTHER, MEDICAID, SELFPAY | PROVIDERS: PCP Family Medicine; Visit Provider Internal Medicine Rheumatology | DX: Z79.899 Other long term (current) drug therapy (principal); M06.041 Rheumatoid arthritis without rheumatoid factor, right hand; M06.042 Rheumatoid arthritis without rheumatoid factor, left hand | CPT/HCPCS: 36415; 80076; 82565; 85025; 86140 ==

== ENCOUNTER → 2023-05-08 12:21 | Outpatient (BNVA) | payer MEDICAID, SELFPAY | PROVIDERS: PCP Family Medicine; Visit Provider Obstetrics & Gynecology | DX: N83.01 Follicular cyst of right ovary (principal) | CPT/HCPCS: 76830 ==

== ENCOUNTER → 2023-06-26 16:05 | Outpatient (BNVA) | payer MEDICAID, SELFPAY | PROVIDERS: PCP Family Medicine; Visit Provider Family Medicine | DX: R52 Pain, unspecified (principal); R50.9 Fever, unspecified | CPT/HCPCS: 87400; 87426 ==

== ENCOUNTER → 2023-07-25 10:37 | Outpatient (BNVA) | payer MEDICAID, SELFPAY | PROVIDERS: PCP Family Medicine; Visit Provider Internal Medicine Rheumatology | DX: Z79.899 Other long term (current) drug therapy (principal); M06.041 Rheumatoid arthritis without rheumatoid factor, right hand; M06.042 Rheumatoid arthritis without rheumatoid factor, left hand | CPT/HCPCS: 36415; 80076; 82565; 85025; 86140 ==

== ENCOUNTER 2023-08-07 05:57 | Day surgery (SDC) | payer MEDICAID, SELFPAY ==
[2023-08-06 08:48] VITALS: BMI 31.6
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
[2023-08-07] VITALS (13 sets, daily range): BP systolic 107–129; BP diastolic 50–85; PULSE 68–99; RESP 15–22; TEMP 36.4–36.7; O2SAT 97–100; BMI 31.6
[2023-08-07] MEDS: sodium chloride 0.9% 1,000 ML 30 ML IV (06:28)
--- NOTE | 2023-08-07 06:47 | W.PM.OPSUD ---
Surgery/Procedure H&P Update DATE OF PROCEDURE: August 07, 2023 DATE H&P PERFORMED: 07/09/23 H&P UPDATE INFORMATION: I have reviewed H&P completed within last 30 days, I have examined patient prior to procedure and No changes to prior documentation PREOP DIAGNOSIS: Chronic pelvic pain PLANNED PROCEDURE: Operation Date: 08/07/23 07:00 Proposed Procedures p Diagnostic laparoscopy 89836,R10.2,G89.29(Not Applicable) - Luca Maynard MD
[2023-08-07] MEDS: sodium chloride 0.9% 500 ML IV (07:03)
[2023-08-07] MEDS: scopolamine 1.5 Patch 1 PATCH TRANSDERMA (07:04)
[2023-08-07] MEDS: ceFAZolin 2,000 MG in sodium chloride 0.9% (plus) 50 ML 100 MG IV (07:06)
[2023-08-07 07:07] LABS: OR HCG Qualitative Urine Negative (Negative)
[2023-08-07] MEDS: BUPivacaine 0.5% INJ 30 mL INJECTION (07:58)
--- NOTE | 2023-08-07 08:01 | P.OP_ITS ---
Operative Report Date of procedure: August 07, 2023 Pre-op diagnosis: Chronic pelvic pain Post-op diagnosis: Same Post-op findings: Normal uterus. Normal left and right fallopian tube Normal right and left ovaries Left ovarian physiological cyst Procedure done: Diagnostic laparoscopy Specimens removed/disposition: Left ovarian cyst fluid for cytology Surgeon: Luca Maynard MD Estimated blood loss (mL): 2 IV fluids (mL): 800 Urine output (mL): 50 Complications: None Procedure: After informed consent, the patient was taken to the operating room where general anesthesia was administered. The patient was examined under anesthesia and found to have a normal uterus with normal adnexa. She was placed in the dorsal lithotomy position and prepped and draped in sterile fashion. Pre- Procedure Time-Out verifying the correct patient identity, correct procedure verified with consent, correct site and side, correct patient position, availability of correct implants and any special equipment or requirements was performed and acknowledge by the OR team. A weighted speculum was placed in the vagina, and the anterior lip of cervix was grasped with the single toothed tenaculum. A uterine manipulator was advanced into the endocervical. Tenaculum was removed after uterine manipulator was secured. The speculum was removed from the vagina. An intraumbilical incision was made with a scalpel. While tenting up on the abdomen, a Verres needle with sleeve was admitted into the intra-abdominal cavity. A saline drop test was performed and noted to be within normal limits. Pneumoperitoneum was attained with 4 liters of carbon dioxide. The Verres needle was removed. A 5 mm trocar and sleeve were admitted into the abdomen and laparoscopic confirmation of location was achieved, A second incision was made 3 cm above the symphysis pubis, and a 5 mm trocar and sleeve were admitted into the abdomen under direct, laparoscopic visualization without complication. A survey revealed normal abdominal anatomy. The pelvic survey shows normal uterus, left and right adnexa. A 5 mm blunt probe was advanced through the second trocar sleeve, and light manipulation of ovaries and uterus to assess the posterior aspects was performed. No pathology was noted with the exception of 3 cm left ovarian cyst which was aspirated for cytology. Then the carbon dioxide was allowed to escape from the abdomen. The instruments were removed, and skin cover with a bandage. The instruments were removed from the vagina, and excellent hemostasis was noted. The patient tolerated the procedure well, and sponge, lap and needle count were correct times two. The patient taken to the recovery room in good condition.
[2023-08-07] MEDS: meperidine 50 mg/mL INJ 12.5 MG IVP (08:26)
--- NOTE | 2023-08-07 08:28 | P.ANESUD_ITS ---
Pre-Anesthetic Update Pre-Anesthetic Assessment: Date of Surgery/Procedure: 08/07/23 Preop [place]: Chronic pelvic pain Proposed Procedure: Operation Date: 08/07/23 07:00 Proposed Procedures p Diagnostic laparoscopy 22528,R10.2,G89.29(Not Applicable) - Luca Maynard MD Any changes to Pre-Anesthetic Assessment?: No Last Intake: Intake Last Liquid Date 08/06/23 Last Liquid Time 23:00 Last Solid Date 08/06/23 Last Solid Time 23:00 Labs Last 48hrs: Blood Bank 08/07/23 06:59 Blood Type O Positive Rho(D) Type Positive Vitals: Temperature 97.5 F L 08/07/23 06:11 Temperature Source Temporal Artery S can 08/07/23 06:11 Pulse Rate 99 08/07/23 06:11 Respiratory Rate 19 H 08/07/23 08:26 Respiratory Effort Spontaneous, Non- Labored 08/07/23 08:26 Respiratory Depth Normal 08/07/23 08:26 Blood Pressure 115/74 08/07/23 06:11 Blood Pressure [place] n 87 08/07/23 06:11 Pulse Oximetry 100 08/07/23 06:11 Oxygen Delivery Me thod Room Air 08/07/23 06:12 Exam: Pre-Anes Outpt Exam: alert, oriented x 3, clear to auscultation bilaterally and regular rate & rhythm Cardiac Studies: No Data to Display
[2023-08-07 08:43] LABS: Cyto Order Verification Order Verified
[2023-08-07] MEDS: HYDROmorphone 1 mg/mL INJ 1 mL 0.5 MG IVP (09:13)
--- NOTE | 2023-08-07 16:55 | ANE.PACU2 ---
Inpatient post-anesthesia follow up: Airway intact: Yes Vital signs: Temperature 97.9 F Pulse Rate 79 Respiratory Rate 17 Blood Pressure 127/85 Pulse Oximetry 99 Oxygen Delivery Me thod Room Air Oxygen Flow Rate Fraction of Inspir ed Oxygen Hydration adequate: Yes Nausea and vomiting: No Pain level: 3 Mental status: Baseline
== END 2023-08-07 10:00 | disposition home or self-care (01) ==
PROVIDERS: PCP Family Medicine; Visit Provider Obstetrics & Gynecology
PROC: (CPT 49320; principal; 2023-08-07 07:00)
DX: R10.2 Pelvic and perineal pain (principal)
CPT/HCPCS: 49320; 84703; 86850; 86900; 88112; 88305; J0690; J1100; J1170; J2175; J2250; J2405; J2704; J2710; J3010; J3490; J7030; J7040

== ENCOUNTER → 2023-10-16 15:56 | Outpatient (BNVA) | payer MEDICAID, SELFPAY | PROVIDERS: PCP Family Medicine; Visit Provider Internal Medicine Rheumatology | DX: Z79.899 Other long term (current) drug therapy (principal); M06.041 Rheumatoid arthritis without rheumatoid factor, right hand; M06.042 Rheumatoid arthritis without rheumatoid factor, left hand | CPT/HCPCS: 80076; 82565; 85025; 86140 ==

== ENCOUNTER 2023-10-19 17:20 | Emergency (ER) | payer MEDICAID, SELFPAY ==
[2023-10-19 18:09] VITALS: BP 119/86; PULSE 115; RESP 16; TEMP 38.1; O2SAT 100; BMI 31.7
[2023-10-19 19:49] LABS: Influenza A by IFA positive (Negative); Influenza B by IFA negative (Negative)
[2023-10-19 20:01] LABS: SARS Covid-2 Antigen negative (Negative)
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
[2023-10-19] MEDS: dexamethasone 4 mg Tablet 10 MG PO (21:41)
[2023-10-19 21:42] VITALS: RESP 20
[2023-10-19] MEDS: oxyCODONE-APAP 5-325 mg Tablet 2 TAB PO (21:42)
[2023-10-19] MEDS: oseltamivir phosphate 75 mg Capsule PO (21:43)
[2023-10-19] MEDS: ondansetron 4 MG Tablet 8 MG PO (21:43)
== END 2023-10-19 21:45 | disposition home or self-care (01) ==
PROVIDERS: Emergency Medicine; Emergency Provider Emergency Medicine; PCP Family Medicine
DX: J10.1 Influenza due to other identified influenza virus with other respiratory manifestations (principal); Z11.52 Encounter for screening for COVID-19; I10 Essential (primary) hypertension
CPT/HCPCS: 87426; 87804; 99283; J8540; Q0162

== ENCOUNTER → 2023-11-15 15:56 | Outpatient (BNVA) | payer MEDICAID, SELFPAY | PROVIDERS: PCP Family Medicine; Visit Provider Family Medicine | DX: R50.9 Fever, unspecified (principal) | CPT/HCPCS: 87400; 87426 ==

== ENCOUNTER → 2024-01-21 13:40 | Outpatient (BNVA) | payer MEDICAID, SELFPAY | PROVIDERS: PCP Family Medicine; Visit Provider Family Medicine | DX: R50.9 Fever, unspecified (principal); R05.9 Cough, unspecified | CPT/HCPCS: 87400; 87426 ==

== ENCOUNTER 2024-01-29 14:40 | Emergency (ER) | payer MEDICAID, SELFPAY ==
[2024-01-29 14:51] VITALS: BP 111/76; PULSE 84; RESP 16; TEMP 36.6; O2SAT 98; BMI 27.4
--- NOTE | 2024-01-29 14:59 | XR_ITS ---
WS: [id number] Examination: XR chest 1V [id number] Reason for Exam: shortness of breath Date: January 29, 2024 Comparison: June 12, 2010 Findings: The cardiomediastinal silhouette is within normal limits. The lungs appear hyperinflated There is no edema or effusion There is increased density in the right infrahilar region. This may be projectional. Impression: There is no failure or effusion There is increased density in the right infrahilar area. I recommend follow-up with PA and lateral ch est x-rays if symptoms persist.
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
[2024-01-29 15:16] LABS: Basophils % 0.3 %; Eosinophils % 0.2 %; Hematocrit 44.3 % (36-47); Lymphocytes # 1.7 10^3/uL (0.8-4.8); Lymphocytes % 19.3 %; Mean Corpuscular HGB Conc 31.8 g/dL (30-55); Mean Corpuscular Hemoglobin 29.4 pg (27-33); Mean Corpuscular Volume 92.5 fl (85-98); Mean Platelet Volume 10.9 fL (7.4-10.4); Monocytes # 0.7 10^3/uL (0.2-0.9); Monocytes % 7.5 %; Neutrophils # 6.26 10^3/uL (1.8-7.7); Neutrophils % 72.1 %; Nucleated Red Blood Cells % 0 %; Platelet Count 294 10^3/cmm (157-399); Red Blood Count 4.79 10^6/uL (3.85-5.65); White Blood Count 8.69 10^3/uL (3.29-11.43)
[2024-01-29] MEDS: dexamethasone 10 mg/mL INJ IM (15:34)
[2024-01-29] MEDS: ketorolac 60 mg/2 mL INJ IM (15:34)
[2024-01-29 15:37] LABS: Anion Gap 12.4 (5-19); Blood Urea Nitrogen 16 mg/dL (6-20); Calcium 9.5 mg/dL (8.5-10.5); Carbon Dioxide 26 mmol/L (22-29); Chloride 107 mmol/L (98-107); Creatinine Clr Calc Pharmacy 85.7954; Glomerular Filtration Rate 77.2 mL/min (90-130); Glucose 113 mg/dL (65-115); Osmolality Calculated 294 mOsm/kg (285-295); Potassium 4.4 mmol/L (3.5-5.1); Sodium 141 mmol/L (136-145)
[2024-01-29 15:56] LABS: Influenza A by IFA negative (Negative); Influenza B by IFA negative (Negative)
[2024-01-29 15:58] LABS: SARS Covid-2 Antigen negative (Negative)
[2024-01-29] MEDS: levoFLOXacin 750 mg Tablet PO (16:13)
[2024-01-29 16:19] VITALS: BP 113/78; PULSE 81; O2SAT 99
== END 2024-01-29 16:20 | disposition home or self-care (01) ==
PROVIDERS: Emergency Provider Emergency Medicine; PCP Family Medicine
DX: J15.9 Unspecified bacterial pneumonia (principal); Z11.52 Encounter for screening for COVID-19; I10 Essential (primary) hypertension
CPT/HCPCS: 36415; 71045; 80048; 85025; 87426; 87804; 96372; 99284; J1100; J1885

== ENCOUNTER 2024-02-27 10:07 | Inpatient (IN) | payer MEDICAID, SELFPAY ==
[2024-02-27] VITALS (26 sets, daily range): BP systolic 102–138; BP diastolic 50–101; PULSE 59–81; RESP 10–17; TEMP 36.3–36.6; O2SAT 92–98; BMI 27.4
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
[2024-02-27 10:48] LABS: ABG PCO2 46.1 mmHg (35-45); ABG PH Result 7.31 (7.35-7.45); Alveolar-Arterial Oxygen Gradi 2.5 mmHg (5-10); Arterial Blood Gas Hematocrit 41.8 % (37-47); Base Excess ABG -3.3 mmol/L (-2.0-2.0); Blood Gas Allen Test Pos; Blood Gas Operator Identificat CAK; Blood Gas Sample Site Radial, left; Blood Gas Sample Type Arterial; Carboxyhemoglobin 2.6 %THgb (0.4-20.1); HCO3 ABG 23.2 mmol/L (22-26); HGB O2 Sat 92.6 % (95-100); Ionized Calcium Level - ABG 1.3 mmol/L (1.1-1.4); Methemoglobin 0.3 % (0.4-1.5); Oxygen Device ROOM AIR; Oxygen Saturation ABG 95.3; PO2 ABG 73.4 mmHg (80.0-100.0); PO2 FiO2 Ratio Arterial Blood 0; Potassium Level - ABG 4.3 mmol/L (3.5-5.0); Total Hemoglobin 13.6 g/dL (12-16)
[2024-02-27] MEDS: sodium chloride 0.9% 1,000 ML 999 ML IV ×2 (10:49→13:55)
--- NOTE | 2024-02-27 10:49 | ECG_ITS ---
[facility] Test Date: 2024-02-27 Pat Name: Pham Castro Department: Room: Gender: Female It Engineer: : 1975 Requested By: Bernadine Ferrari Order Number: [id number] Vernon MD: Hero Carter M.D. Measurements Intervals [place] Rate: 68 P: 40 MA: 122 QRS: 66 QRSD: 82 T: 74 QT: 415 QTc: 444 Interpretive Statements SINUS RHYTHM No previous ECG available for comparison Electronically Signed On 02-27-2024 16:49:36 CDT by Hero Carter M.D. [email or web address]
[2024-02-27 10:55] LABS: Basophils % 0.3 %; Eosinophils % 0.3 %; Lymphocytes # 2.4 10^3/uL (0.8-4.8); Lymphocytes % 26.1 %; Mean Corpuscular HGB Conc 31.1 g/dL (30-55); Mean Corpuscular Hemoglobin 29.2 pg (27-33); Mean Corpuscular Volume 93.8 fl (85-98); Mean Platelet Volume 10.3 fL (7.4-10.4); Monocytes # 0.6 10^3/uL (0.2-0.9); Monocytes % 6.7 %; Neutrophils # 6.14 10^3/uL (1.8-7.7); Neutrophils % 66.3 %; Nucleated Red Blood Cells % 0 %; Platelet Count 215 10^3/cmm (157-399); Red Cell Distribution Width 13.5 % (12.1-15.1); White Blood Count 9.27 10^3/uL (3.29-11.43)
--- NOTE | 2024-02-27 10:57 | PC.PHAR ---
pt states she takes care of her own medications-pt states she no longer takes clonazepam 1mg bid ext shows last filled 12/12/23 30d/s-pt states she only took lunesta 3mg today states she took 20 tabs at 08:00-pt states she takes the medications entered
[2024-02-27 11:17] LABS: Acetaminophen 81.3 ug/mL (10-30); Alanine Aminotransferase 11 U/L (0-33); Albumin Level 4.1 g/dL (3.5-5.2); Alkaline Phosphatase 84 U/L (35-105); Aspartate Amino Transferase 17 U/L (0-32); Blood Urea Nitrogen 9 mg/dL (6-20); Calcium 8.3 mg/dL (8.5-10.5); Carbon Dioxide 23 mmol/L (22-29); Chloride 103 mmol/L (98-107); Creatinine Clr Calc Pharmacy 76.2626; Globulin 2.4 g/dL (1.3-4.6); Glomerular Filtration Rate 67.4 mL/min (90-130); Glucose 104 mg/dL (65-115); Osmolality Calculated 279 mOsm/kg (285-295); Sodium 135 mmol/L (136-145); Thyroid Stimulating Hormone 1.67 uIU/mL (0.27-4.20); Total Bilirubin 0.2 mg/dL (0.15-1.2); Total Protein 6.5 g/dL (6.6-8.7)
[2024-02-27 11:24] LABS: Alcohol Level < 10 mg/dL (0-10); Salicylate < 0.3 mg/dL (3-10)
[2024-02-27 11:25] LABS: Anion Gap 13.5 (5-19); Potassium 4.5 mmol/L (3.5-5.1)
[2024-02-27 13:01] LABS: Amphetamines Screen Urine Negative (Negative); Barbiturates Screen Urine Negative (Negative); Benzodiazepines Screen Urine Negative (Negative); Cocaine Screen Urine Negative (Negative); Opiate Screen Urine Positive (Negative); PCP Screen Urine Negative (Negative); THC Screen Urine Positive (Negative); Urine Appearance Clear (CLEAR); Urine Color Light yellow (Yellow)
[2024-02-27 13:02] LABS: Add Urine Culture? No; Bacteria Urine TRACE /hpf; Bilirubin Urine Neg (Negative); Blood Urine Neg (Negative); Glucose Urine UA Norm (Normal); Ketones Urine Negative (Negative); Leukocyte Esterase Urine Negative (Negative); Nitrate Urine Negative (Negative); Protein Urine Neg (Negative); Specific Gravity, Urine 1.015 (1.005-1.030); Squamous Epithelial Cell Urine 0-4 /hpf (0-5); Urobilinogen Urine Norm (Negative); WBC Urine 0-4 /hpf (0-5); pH Urine 7 (5-7)
[2024-02-27 13:22] LABS: HCG Qualitative Urine. Negative (Negative)
[2024-02-27 13:26] LABS: Acetaminophen 111.5 ug/mL (10-30)
[2024-02-27] MEDS: DEXTROSE 5% IV ×2 (13:54→15:19)
[2024-02-27] MEDS: ACETYLCYSTEINE IV ×2 (13:54→15:19)
[2024-02-27 14:42] LABS: INR 0.92 (0.8-1.2)
[2024-02-27 14:52] LABS: Hepatitis A Antibody IgM Non-Reactive (Nonreactive); Hepatitis B Core AB, Total Non-Reactive (Nonreactive); Hepatitis B Surface AB 4.5 (11.5-1000); Hepatitis B Surface Antigen Non-Reactive (Nonreactive); Hepatitis C Virus Antibody Non-Reactive (Nonreactive)
--- NOTE | 2024-02-27 16:40 | PC.NURSE ---
96 hour holds read and reviewed with patient. Patient very tearful, but stated understandings. Copy of rights given to patient.
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
--- NOTE | 2024-02-27 18:20 | PC.NURSE ---
Spoke with ER to verify psychiatric consult, transferred to Dr. Fay and he confirmed that he is consulted.
[2024-02-27] MEDS: sodium chloride 0.9% 1,000 ML 75 ML IV (18:48)
[2024-02-27] MEDS: pantoprazole 40 mg SDV IVP (18:48)
[2024-02-27] MEDS: zonisamide 100 MG Capsule PO (18:48)
--- NOTE | 2024-02-27 19:01 | PC.NURSE ---
Patient home medications reviewed with JAVED Carrera and JAVED Posadas, all medications taken home with patients daughter, Dunia.
[2024-02-27 19:04] LABS: INR 1.03 (0.8-1.2)
--- NOTE | 2024-02-27 19:36 | PC.NURSE ---
Patient arrived to ICU 4 at approximately 1800, Patient is alert and oriented, slightly groggy assisted to BSC with one assist for balance. Patient able to answer all orientation questions correctly and answer admission questions. Patient is on Room air, see stable vitals charted. During bedside report, patient appeared confused and asked, who are all these people, what pill is this patient was given medication education prior to this nurse obtaining medication from [facility]. acetylcysteine still running from ER with approximately 150ml remaining in bag, pharmacy called and third bag on its way for night shift supervisor. assistant commissioner at bedside since admission to ICU.
[2024-02-27 19:40] LABS: Procalcitonin 0.02 ng/mL (0-0.5); Thyroid Stimulating Hormone 3.94 uIU/mL (0.27-4.20); Vitamin B12 851 pg/mL (232-1245)
[2024-02-27 19:52] LABS: Acetaminophen 64.7 ug/mL (10-30); Alanine Aminotransferase 10 U/L (0-33); Albumin Level 3.9 g/dL (3.5-5.2); Alkaline Phosphatase 71 U/L (35-105); Blood Urea Nitrogen 7 mg/dL (6-20); Calcium 7.5 mg/dL (8.5-10.5); Carbon Dioxide 24 mmol/L (22-29); Chloride 108 mmol/L (98-107); Creatinine Clr Calc Pharmacy 85.7954; Globulin 2.4 g/dL (1.3-4.6); Glomerular Filtration Rate 77.2 mL/min (90-130); Glucose 96 mg/dL (65-115); Iron 58 ug/dL (37-145); Osmolality Calculated 290 mOsm/kg (285-295); Sodium 141 mmol/L (136-145); Total Bilirubin 0.2 mg/dL (0.15-1.2); Total Protein 6.3 g/dL (6.6-8.7)
[2024-02-27 19:56] LABS: Anion Gap 12.9 (5-19); Percent Saturation 18.3 % (20-50); Potassium 3.9 mmol/L (3.5-5.1); Total Iron Binding Capacity 316 mcg/dl; Unsaturated Iron Binding 258 ug/dL (112-347)
[2024-02-27 19:57] LABS: Aspartate Amino Transferase 16 U/L (0-32)
--- NOTE | 2024-02-27 21:05 | PC.NURSE ---
Report given to JAVED James
[2024-02-28] VITALS (9 sets, daily range): BP systolic 111–132; BP diastolic 54–83; PULSE 52–71; RESP 9–18; TEMP 36.4–36.7; O2SAT 93–100; BMI 27.4
[2024-02-28 02:24] LABS: Basophils % 0.2 %; Eosinophils % 0.3 %; Hematocrit 37.5 % (36-47); Lymphocytes # 3.2 10^3/uL (0.8-4.8); Lymphocytes % 35.9 %; Mean Corpuscular HGB Conc 31.5 g/dL (30-55); Mean Corpuscular Volume 95.4 fl (85-98); Mean Platelet Volume 10.3 fL (7.4-10.4); Monocytes # 0.6 10^3/uL (0.2-0.9); Monocytes % 7.3 %; Neutrophils # 4.91 10^3/uL (1.8-7.7); Neutrophils % 56.1 %; Nucleated Red Blood Cells % 0 %; Platelet Count 168 10^3/cmm (157-399); Red Blood Count 3.93 10^6/uL (3.85-5.65); Red Cell Distribution Width 13.6 % (12.1-15.1); White Blood Count 8.77 10^3/uL (3.29-11.43)
[2024-02-28 02:40] LABS: Acetaminophen 14.5 ug/mL (10-30); Alanine Aminotransferase 9 U/L (0-33); Albumin Level 3.4 g/dL (3.5-5.2); Alkaline Phosphatase 64 U/L (35-105); Aspartate Amino Transferase 16 U/L (0-32); Blood Urea Nitrogen 5 mg/dL (6-20); Calcium 7.9 mg/dL (8.5-10.5); Carbon Dioxide 25 mmol/L (22-29); Chloride 109 mmol/L (98-107); Cholesterol 216 mg/dL (0-200); Creatinine Clr Calc Pharmacy 85.7954; Globulin 2.2 g/dL (1.3-4.6); Glomerular Filtration Rate 77.2 mL/min (90-130); Glucose 91 mg/dL (65-115); HDL Cholesterol 48 mg/dL (60-100); LDL Cholesterol Calculated 151 mg/dL (50-129); LDL HDL Ratio 3.15 RATIO (0.00-3.22); Osmolality Calculated 287 mOsm/kg (285-295); Phosphorus 3.1 mg/dL (2.5-4.5); Sodium 140 mmol/L (136-145); Total Bilirubin 0.2 mg/dL (0.15-1.2); Total Protein 5.6 g/dL (6.6-8.7); Triglycerides 85 mg/dL (0-150)
[2024-02-28 02:42] LABS: INR 1.08 (0.8-1.2)
[2024-02-28 03:31] LABS: Estmated Average Glucose 97
[2024-02-28 04:33] LABS: Folate Level > 20.0 ng/mL (4.8-37.3)
[2024-02-28] MEDS: buPROPion SR (12 HR) 100 mg Tablet 200 MG PO (05:22)
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
[2024-02-28 10:38] LABS: Acetaminophen < 5.0 ug/mL (10-30); Alanine Aminotransferase 9 U/L (0-33); Albumin Level 3.3 g/dL (3.5-5.2); Alkaline Phosphatase 61 U/L (35-105); Anion Gap 8.6 (5-19); Aspartate Amino Transferase 18 U/L (0-32); Blood Urea Nitrogen 4 mg/dL (6-20); Calcium 7.1 mg/dL (8.5-10.5); Carbon Dioxide 25 mmol/L (22-29); Chloride 109 mmol/L (98-107); Creatinine Clr Calc Pharmacy 89.3437; Glomerular Filtration Rate 77.2 mL/min (90-130); Glucose 92 mg/dL (65-115); Osmolality Calculated 285 mOsm/kg (285-295); Potassium 3.6 mmol/L (3.5-5.1); Sodium 139 mmol/L (136-145); Total Bilirubin 0.2 mg/dL (0.15-1.2); Total Protein 5.3 g/dL (6.6-8.7)
[2024-02-28] MEDS: pantoprazole 40 mg SDV IVP (10:42)
[2024-02-28] MEDS: sodium chloride 0.9% 1,000 ML 75 ML IV (10:43)
[2024-02-28] MEDS: zonisamide 100 MG Capsule PO ×2 (12:10→17:57)
--- NOTE | 2024-02-28 12:47 | P.PN_ITS ---
Subjective 2 Subjective: No acute overnight. Patient has remained hemodynamic stable and afebrile. Today morning seen with sitter at bedside. Patient is awake and alert. Denies any new complaint. Denies any abdominal pain. A lot more awake and alert and able to have conversation today. Vitals/I&O/Wt Last Vital Signs Temp 97.9 F 02/28/24 04:00 Pulse 66 02/28/24 09:38 Resp 16 02/28/24 09:38 BP 127/77 02/28/24 04:00 Pulse Ox 100 02/28/24 09:38 O2 Del Method Room Air 02/28/24 09:38 02/27/24 02/28/24 02/28/24 22:59 06:59 14:59 Intake Total 1304.5 / 1304.5 1000 / 1000 Balance 1304.5 / 1304.5 1000 / 1000 Weight last 48 hrs Weight 78.97 kg Weight 72.575 kg Weight 72.575 kg Physical Exam 2 Narrative: General: No acute distress, AO x 3, anxious HEENT: PERRLA, pupils bilaterally equal and reactive Chest: Normal vesicular breath sounds, no added sounds, equal good air entry bilaterally CVS: S1-S2 regular, no murmurs, no tachycardia, no gallops, no rubs Abdomen: Soft, nontender, no organomegaly, bowel sounds present Neuro: No focal deficits, no facial deformity, AO x3, power 5/5 in all limbs Data 02/28/24 02:14 02/28/24 09:53 A&P Assessment and plan (1) Drug overdose: Intentional drug overdose with Lunesta and Tylenol. Suicidal ideation. Patient is awake and alert today. Concern with Lunesta would be somnolence which seems to have improved. Patient's Tylenol levels are negative now. Stop IV fluids. Start on regular diet. (2) Overdose on Tylenol: Tylenol levels negative today. Patient received 21-hour treatment of manage start 15 while monitoring INR, Tylenol level and LFTs. Tylenol levels have become negative. LFTs and INR have remained stable. Will stop N-acetylcysteine. Monitor LFTs daily. Avoid hepatotoxic medications. Avoid Tylenol for now. Protonix daily, Zofran as needed. (3) Suicidal ideation: 96-hour hold. Will consult psychiatry. Patient is medically stable to be transferred to Neuropsych Unit today. (4) Major depressive disorder, recurrent, moderate: Continue with home dose of bupropion and escitalopram. Monitor for somnolence. Hold off on trazodone for now. Continue with home dose of zonisamide. (5) Anxiety and depression: (6) Respiratory acidosis: Resolved. (7) Essential (primary) hypertension: Goal blood pressure less than 140/90 mmHg. Blood pressure stable for now. Hold off on antihypertensives. Will restart as blood pressures become higher. Plan Full code Regular diet Protonix for PUD prophylaxis Heparin for DVT prophylaxis 96-hour hold. Transfer to Neuropsych Unit. Attestations 2 Medical Necessity Statement*: Requires further hospitalization for neuropsych care in setting of suicidal ideation with intentional overdose Diagnoses Drug overdose T50.901A Overdose on Tylenol T39.1X1A Suicidal ideation R45.851 Major depressive disorder, recurrent, moderate F33.1 Anxiety and depression F41.9; F32.9 Respiratory acidosis E87.29 Essential (primary) hypertension I10
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
[2024-02-28] MEDS: NON-FORMULARY MEDICATION PO ×2 (17:57)
[2024-02-28] MEDS: blistex lip oint 7 gm Tube 1 APPLIC TOPICAL (18:19)
[2024-02-28] MEDS: hyDROXYzine 25 mg Capsule 50 MG PO (20:23)
[2024-02-29 06:00] VITALS: BP 109/69; PULSE 76; RESP 14; TEMP 36.4; O2SAT 98
[2024-02-29] MEDS: buPROPion SR (12 HR) 100 mg Tablet 200 MG PO (06:10)
[2024-02-29 08:20] LABS: Basophils % 0.3 %; Eosinophils % 0.1 %; Hematocrit 43.1 % (36-47); Lymphocytes # 1.8 10^3/uL (0.8-4.8); Lymphocytes % 15.6 %; Mean Corpuscular HGB Conc 31.8 g/dL (30-55); Mean Corpuscular Hemoglobin 29.8 pg (27-33); Mean Corpuscular Volume 93.7 fl (85-98); Mean Platelet Volume 10.3 fL (7.4-10.4); Monocytes # 0.5 10^3/uL (0.2-0.9); Monocytes % 4.2 %; Neutrophils # 9.24 10^3/uL (1.8-7.7); Neutrophils % 79.5 %; Nucleated Red Blood Cells % 0 %; Platelet Count 194 10^3/cmm (157-399); Red Cell Distribution Width 13.4 % (12.1-15.1); White Blood Count 11.64 10^3/uL (3.29-11.43)
[2024-02-29 08:35] LABS: Alanine Aminotransferase 12 U/L (0-33); Alkaline Phosphatase 81 U/L (35-105); Anion Gap 16.4 (5-19); Aspartate Amino Transferase 20 U/L (0-32); Blood Urea Nitrogen 7 mg/dL (6-20); Calcium 8.9 mg/dL (8.5-10.5); Carbon Dioxide 21 mmol/L (22-29); Chloride 106 mmol/L (98-107); Creatinine Clr Calc Pharmacy 98.0519; Globulin 2.8 g/dL (1.3-4.6); Glomerular Filtration Rate 90.1 mL/min (90-130); Glucose 68 mg/dL (65-115); Osmolality Calculated 284 mOsm/kg (285-295); Potassium 4.4 mmol/L (3.5-5.1); Sodium 139 mmol/L (136-145); Total Bilirubin 0.3 mg/dL (0.15-1.2); Total Protein 6.8 g/dL (6.6-8.7)
[2024-02-29] MEDS: NON-FORMULARY MEDICATION PO ×4 (08:39→17:37)
[2024-02-29] MEDS: pantoprazole DR 40 mg Tablet PO (08:39)
[2024-02-29] MEDS: zonisamide 100 MG Capsule PO ×2 (08:39→17:37)
--- NOTE | 2024-02-29 10:05 | P.PN_ITS ---
Subjective 2 Subjective: Transition over to Neuropsych Unit yesterday. Patient has been stable. Under care with psychiatry team. Patient medically stable. Vitals/I&O/Wt Last Vital Signs Temp 97.5 F L 02/29/24 06:00 Pulse 76 02/29/24 06:00 Resp 14 02/29/24 06:00 BP 109/69 02/29/24 06:00 Pulse Ox 98 02/29/24 06:00 O2 Del Method Room Air 02/29/24 06:00 Weight last 48 hrs Weight 72.575 kg Weight 72.575 kg Weight 72.575 kg Weight 78.97 kg Weight 72.575 kg Weight 72.575 kg Physical Exam 2 Narrative: General: No acute distress, AO x 3, anxious HEENT: PERRLA, pupils bilaterally equal and reactive Chest: Normal vesicular breath sounds, no added sounds, equal good air entry bilaterally CVS: S1-S2 regular, no murmurs, no tachycardia, no gallops, no rubs Abdomen: Soft, nontender, no organomegaly, bowel sounds present Neuro: No focal deficits, no facial deformity, AO x3, power 5/5 in all limbs Data 02/29/24 08:02 02/29/24 08:02 A&P Assessment and plan (1) Drug overdose: Intentional drug overdose with Lunesta and Tylenol. Suicidal ideation. Patient is awake and alert today. Concern with Lunesta would be somnolence which seems to have improved. Patient's Tylenol levels are negative now. Stop IV fluids. Start on regular diet. (2) Overdose on Tylenol: Tylenol levels negative today. Patient received 21-hour treatment of manage start 15 while monitoring INR, Tylenol level and LFTs. Tylenol levels have become negative. LFTs and INR have remained stable. Will stop N-acetylcysteine. Monitor LFTs daily. Avoid hepatotoxic medications. Avoid Tylenol for now. Protonix daily, Zofran as needed. (3) Suicidal ideation: 96-hour hold. Will consult psychiatry. Patient is medically stable to be transferred to Neuropsych Unit today. (4) Major depressive disorder, recurrent, moderate: Continue with home dose of bupropion and escitalopram. Monitor for somnolence. Hold off on trazodone for now. Continue with home dose of zonisamide. (5) Anxiety and depression: (6) Respiratory acidosis: Resolved. (7) Essential (primary) hypertension: Goal blood pressure less than 140/90 mmHg. Blood pressure stable for now. Hold off on antihypertensives. Will restart as blood pressures become higher. Plan Full code Regular diet Protonix for PUD prophylaxis Heparin for DVT prophylaxis 96-hour hold. Plan for the day: Liver functions have remained stable. CBC stable. For now we will continue to avoid hepatotoxic medications including Tylenol. Can plan for ibuprofen 400 mg every 8 hours as needed for fever or pain. Internal medicine will sign off. Please call back with any questions. For now should monitor liver function test weekly for next 2 weeks. Attestations 2 Medical Necessity Statement*: Patient requires further hospitalization for 96-hour hold in setting of suicidal ideation Diagnoses Drug overdose T50.901A Overdose on Tylenol T39.1X1A Suicidal ideation R45.851 Major depressive disorder, recurrent, moderate F33.1 Anxiety and depression F41.9; F32.9 Respiratory acidosis E87.29 Essential (primary) hypertension I10
[2024-02-29] MEDS: docusate sodium 100 mg Capsule 200 MG PO ×2 (12:53→17:37)
[2024-02-29 14:00] VITALS: BP 114/79; PULSE 82; RESP 16; TEMP 36.8; O2SAT 99
--- NOTE | 2024-02-29 14:37 | P.NPUPN_ITS ---
Subjective NPU 2 Subjective: Patient presented today reporting that she is feeling stronger and more optimistic about facing the challenges of her future. She denies any issues with the medications reporting she is sleeping better on the current medication and is not currently missing the Lunesta. We talked about strategies she will put in place after discharge. She denied any side effects to the medications. Mental Status Exam 2 MSE Comments: This is an overweight white female in a hospital scrubs with limited grooming and eye contact. No abnormal movements except for mild psychomotor retardation. Cooperative with exam in moderate to extreme distress. Speech was decreased rate and volume. Mood described as struggling, affect congruent and tearful/labile. Thought process linear and organized. Thought content: Patient is experiencing severe anxiety and depression due to ongoing conflict with her . She has no current thoughts of suicide or violence towards others. She does not report any hallucinations or paranoia. She reports feeling overwhelmed and scared. Attention and concentration were intact and memory was appearing mostly reliable but none were formally tested. She is alert and oriented x 3. Insight, judgment and impulse control were limited. Vitals/I&O/Wt Last Vital Signs Temp 98.2 F 02/29/24 14:00 Pulse 82 02/29/24 14:00 Resp 16 02/29/24 14:00 BP 114/79 02/29/24 14:00 Pulse Ox 99 02/29/24 14:00 O2 Del Method Room Air 02/29/24 14:00 Weight last 48 hrs Weight 72.575 kg Weight 72.575 kg Weight 72.575 kg Weight 72.575 kg Weight 78.97 kg Weight 72.575 kg Data NPU 02/29/24 08:02 02/29/24 08:02 A&P Assessment and plan (1) Post-traumatic stress disorder, chronic: (2) Major depressive disorder, recurrent, moderate: (3) Generalized anxiety disorder: (4) Marital conflict involving divorce: (5) Intentional overdose: (6) Suicidal ideation: Plan Patient is a 48-year-old white female with known history of mental health who presented to the emergency department endorsing depression and suicidality with overdose on medication. Patient is in a state of severe distress due to ongoing conflict with her . She has a history of anxiety and depression, which have been exacerbated by her current situation. She has attempted suicide and has expressed fear for her safety and the safety of her children. 1. Continue current medication. Increased/changed wellbutrin SR 200 mg to Wellbutrin XL 150 mg po qam. 2. Recommend sober living treatment after discharge at the highest level of care to which the patient is willing to commit. 3. Continue every 15 minute checks for safety. 4. Will attempt to get collateral information. 5. Encourage individual, group and milieu therapies. Involuntary Hold Information 2 96 Hour Hold: 96 Hour Involuntary Admission: Yes 96 Hour Hold Ending Date: 03/04/24 96 Hour Hold Ending Time: 10:14 Attestations NPU 2 Medical Necessity Statement*: Inpatient hospitalization is medically necessary and the clinically appropriate intervention at this time. We will monitor medications and make changes as indicated. Likely length of stay 2-4 days. Coding Level of Care Code Acute Code for Chg Fwd Diagnoses Post-traumatic stress disorder, chronic F43.12 Major depressive disorder, recurrent, moderate F33.1 Generalized anxiety disorder F41.1 Marital conflict involving divorce Z63.5 Intentional overdose T50.902A Suicidal ideation R45.852
[2024-02-29 20:07] VITALS: BP 128/79; PULSE 71; RESP 18; TEMP 36.8; O2SAT 98
[2024-02-29] MEDS: hyDROXYzine 25 mg Capsule 50 MG PO (20:15)
[2024-02-29] MEDS: efferdent effervescent 1 EACH DENTAL (21:10)
[2024-03-01 06:00] VITALS: BP 125/75; PULSE 85; RESP 16; TEMP 36.6; O2SAT 99
--- NOTE | 2024-03-01 07:37 | P.NPUPN_ITS ---
Subjective NPU 2 Subjective: Patient presented today reporting starting to feel better. We discussed discharge planning likely discharge on Sunday. She reports plan to start addressing issues related to her ex that she allowed to get out of control. We discussed getting appointments together with a plan for discharge in 48 hours. Mental Status Exam 2 MSE Comments: This is an overweight white female in a hospital scrubs with limited grooming and eye contact. No abnormal movements except for mild psychomotor retardation. Cooperative with exam in moderate to extreme distress. Speech was decreased rate and volume. Mood described as struggling, affect congruent and tearful/labile. Thought process linear and organized. Thought content: Patient is experiencing severe anxiety and depression due to ongoing conflict with her . She has no current thoughts of suicide or violence towards others. She does not report any hallucinations or paranoia. She reports feeling overwhelmed and scared. Attention and concentration were intact and memory was appearing mostly reliable but none were formally tested. She is alert and oriented x 3. Insight, judgment and impulse control were limited. Vitals/I&O/Wt Last Vital Signs Temp 97.9 F 03/01/24 06:00 Pulse 85 03/01/24 06:00 Resp 16 03/01/24 06:00 BP 125/75 03/01/24 06:00 Pulse Ox 99 03/01/24 06:00 O2 Del Method Room Air 02/29/24 14:00 Weight last 48 hrs Weight 72.575 kg Weight 72.575 kg Weight 72.575 kg Weight 72.575 kg Data NPU 02/29/24 08:02 02/29/24 08:02 A&P Assessment and plan (1) Post-traumatic stress disorder, chronic: (2) Major depressive disorder, recurrent, moderate: (3) Generalized anxiety disorder: (4) Marital conflict involving divorce: (5) Intentional overdose: (6) Suicidal ideation: Plan Patient is a 48-year-old white female with known history of mental health who presented to the emergency department endorsing depression and suicidality with overdose on medication. Patient is in a state of severe distress due to ongoing conflict with her . She has a history of anxiety and depression, which have been exacerbated by her current situation. She has attempted suicide and has expressed fear for her safety and the safety of her children. 1. Continue current medication. Increased/changed wellbutrin SR 200 mg to Wellbutrin XL 150 mg po qam. 2. Recommend sober living treatment after discharge at the highest level of care to which the patient is willing to commit. 3. Continue every 15 minute checks for safety. 4. Will attempt to get collateral information. 5. Encourage individual, group and milieu therapies. Involuntary Hold Information 2 96 Hour Hold: 96 Hour Involuntary Admission: Yes 96 Hour Hold Ending Date: 03/04/24 96 Hour Hold Ending Time: 10:14 Attestations NPU 2 Medical Necessity Statement*: Inpatient hospitalization is medically necessary and the clinically appropriate intervention at this time. We will monitor medications and make changes as indicated. Likely length of stay 2-4 days. Coding Level of Care Code Acute Code for [facility] Diagnoses Post-traumatic stress disorder, chronic F43.12 Major depressive disorder, recurrent, moderate F33.1 Generalized anxiety disorder F41.1 Marital conflict involving divorce Z63.5 Intentional overdose T50.902A Suicidal ideation R45.85
[2024-03-01] MEDS: docusate sodium 100 mg Capsule 200 MG PO ×2 (08:29→17:53)
[2024-03-01] MEDS: zonisamide 100 MG Capsule PO ×2 (08:29→17:53)
[2024-03-01] MEDS: buPROPion XL (24 HR) 150 mg Tablet PO (08:29)
[2024-03-01] MEDS: pantoprazole DR 40 mg Tablet PO (08:29)
[2024-03-01] MEDS: NON-FORMULARY MEDICATION PO ×4 (08:29→17:53)
[2024-03-01] MEDS: sennosides-docusate Tablet 1 TAB PO (09:13)
[2024-03-01 10:00] VITALS: BMI 27.4
[2024-03-01 14:00] VITALS: BP 107/60; PULSE 97; RESP 16; TEMP 36.8; O2SAT 96
[2024-03-01] MEDS: ibuprofen 800 mg tablet PO (15:23)
[2024-03-01] MEDS: lactulose oral liq 20 gm/30 mL UDC 10 GM PO (19:32)
[2024-03-01 19:47] VITALS: BP 114/70; PULSE 87; RESP 18; TEMP 36.8; O2SAT 98
[2024-03-01] MEDS: hyDROXYzine 25 mg Capsule 50 MG PO (20:29)
[2024-03-02] MEDS: magnesium hydroxide 30 mL UDC PO (00:25)
[2024-03-02 06:00] VITALS: RESP 16
[2024-03-02] MEDS: pantoprazole DR 40 mg Tablet PO (08:18)
[2024-03-02] MEDS: docusate sodium 100 mg Capsule 200 MG PO ×2 (08:18→17:54)
[2024-03-02] MEDS: buPROPion XL (24 HR) 150 mg Tablet PO (08:18)
[2024-03-02] MEDS: zonisamide 100 MG Capsule PO ×2 (08:18→17:54)
[2024-03-02] MEDS: NON-FORMULARY MEDICATION PO ×4 (08:18→17:55)
[2024-03-02 10:00] VITALS: BMI 28.9
[2024-03-02 14:00] VITALS: BP 112/75; PULSE 85; RESP 17; TEMP 36.7; O2SAT 100
--- NOTE | 2024-03-02 17:20 | P.NPUPN_ITS ---
Subjective NPU 2 Subjective: Patient is a 48-year-old female with PTSD and major depressive disorder admitted after an overdose on Lunesta. Patient had reported that she was feeling better and no longer had suicidal thoughts. She had continued to endorse some PTSD symptoms. She had reported that she was hopeful about receiving intensive services on an outpatient basis for treating PTSD. She had reported previous failed trial on Effexor for depression. She had also reported having taken Lexapro but reported that it had not been helpful despite taking it for several months. Patient had reported that she had abruptly stopped Klonopin 1 mg twice a day 2 weeks ago after taking it for nearly 2 years. Mental Status Exam 2 MSE Comments: This is an overweight white female in a hospital scrubs with limited grooming and eye contact. No abnormal movements except for mild psychomotor retardation. Cooperative with exam in moderate distress. Speech was normal in rate and normal in volume. Mood described as depressed. Her affect was mood congruent and restricted. Thought process was linear and organized. Thought content: she denied suicidal or homicidal ideation. She does not report any hallucinations or paranoia. Attention and concentration were intact and memory was appearing mostly reliable but none were formally tested. She is alert and oriented x 3. Insight, judgment and impulse control were limited. Vitals/I&O/Wt Last Vital Signs Temp 98.0 F 03/02/24 14:00 Pulse 85 03/02/24 14:00 Resp 17 03/02/24 14:00 BP 112/75 03/02/24 14:00 Pulse Ox 100 03/02/24 14:00 O2 Del Method Room Air 03/01/24 14:00 Weight last 48 hrs Weight 76.43 kg Weight 76.43 kg Weight 72.575 kg Data NPU 02/29/24 08:02 02/29/24 08:02 A&P Assessment and plan (1) Post-traumatic stress disorder, chronic: (2) Major depressive disorder, recurrent, moderate: (3) Generalized anxiety disorder: (4) Marital conflict involving divorce: (5) Intentional overdose: (6) Suicidal ideation: Plan Patient is a 48-year-old white female with known history of mental health who presented to the emergency department endorsing depression and suicidality with overdose on medication. Patient is in a state of severe distress due to ongoing conflict with her . She has a history of anxiety and depression, which have been exacerbated by her current situation. She has attempted suicide and has expressed fear for her safety and the safety of her children. 1. Continue Wellbutrin xl 150mg in am and add zoloft 25mg daily to target PTSD/MDD symptoms. Restart Klonopin .5mg bid as previously prescribed for greater than 3 years for anxiety. 2. Recommend sober living treatment after discharge at the highest level of care to which the patient is willing to commit. 3. Continue every 15 minute checks for safety. 4. Will attempt to get collateral information. 5. Encourage individual, group and milieu therapies. Involuntary Hold Information 2 96 Hour Hold: 96 Hour Involuntary Admission: Yes 96 Hour Hold Ending Date: 03/04/24 96 Hour Hold Ending Time: 10:14 Attestations NPU 2 Medical Necessity Statement*: Inpatient hospitalization is medically necessary and the clinically appropriate intervention at this time. We will monitor medications and make changes as indicated. Likely length of stay 2-4 days. Coding Level of Care Code Acute Code for [facility] Diagnoses Post-traumatic stress disorder, chronic F43.12 Major depressive disorder, recurrent, moderate F33.1 Generalized anxiety disorder F41.1 Marital conflict involving divorce Z63.5 Intentional overdose T50.902A Suicidal ideation R45.856
[2024-03-02] MEDS: CLONazepam 0.5 mg Tablet PO (17:54)
[2024-03-02] MEDS: sertraline 50 mg Tablet PO (17:55)
[2024-03-02 20:40] VITALS: BP 117/83; PULSE 90; RESP 18; TEMP 36.7; O2SAT 99
[2024-03-02] MEDS: trazodone 50 mg Tablet PO (21:05)
[2024-03-03 06:00] VITALS: BP 110/71; PULSE 76; RESP 16; TEMP 36.4; O2SAT 97
[2024-03-03] MEDS: pantoprazole DR 40 mg Tablet PO (09:41)
[2024-03-03] MEDS: ibuprofen 800 mg tablet PO (09:41)
[2024-03-03] MEDS: CLONazepam 0.5 mg Tablet PO (09:41)
[2024-03-03] MEDS: buPROPion XL (24 HR) 150 mg Tablet PO (09:42)
[2024-03-03] MEDS: NON-FORMULARY MEDICATION PO ×2 (09:42→09:43)
[2024-03-03] MEDS: sertraline 50 mg Tablet PO (09:42)
[2024-03-03] MEDS: zonisamide 100 MG Capsule PO (09:42)
[2024-03-03] MEDS: docusate sodium 100 mg Capsule 200 MG PO (09:42)
[2024-03-03 10:00] VITALS: BMI 28.9
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
[2024-03-03 13:14] VITALS: BP 110/71; PULSE 76; RESP 16; TEMP 36.4; O2SAT 97
== END 2024-03-03 14:07 | disposition home or self-care (01) | DRG 917 ==
LOC: ER 13:42 → NP 02-29 16:40 → ICU 03-01 13:42
PROVIDERS: Admitting Provider Student in an Organized Health Care Education/Training Program; Emergency Provider Emergency Medicine; PCP Family Medicine; Visit Provider Psychiatry & Neurology Psychiatry
DX: T42.6X2A Poisoning by other antiepileptic and sedative-hypnotic drugs, intentional self-harm, initial encounter (principal); J96.02 Acute respiratory failure with hypercapnia; F33.1 Major depressive disorder, recurrent, moderate; R45.851 Suicidal ideations; T39.1X2A Poisoning by 4-Aminophenol derivatives, intentional self-harm, initial encounter; Y99.9 Unspecified external cause status; F43.12 Post-traumatic stress disorder, chronic; F41.1 Generalized anxiety disorder; Z63.0 Problems in relationship with spouse or partner; Z91.51 Personal history of suicidal behavior
CPT/HCPCS: 36415; 36600; 80051; 80053; 80061; 80306; 80307; 81001; 81025; 82330; 82607; 82746; 82805; 83036; 83540; 83550; 83735; 84100; 84145; 84443; 85025; 85610; 86705; 86706; 86709; 86803; 87340; 93005; 94664; 96374; 97150; 97165; 99285; C9113; J0132; J7030; J7060; J7070

== ENCOUNTER → 2024-06-25 09:28 | Outpatient (BNVA) | payer MEDICAID, SELFPAY | PROVIDERS: PCP Family Medicine; Visit Provider Family Medicine | DX: Z20.822 Contact with and (suspected) exposure to COVID-19 (principal); Z79.899 Other long term (current) drug therapy; M06.041 Rheumatoid arthritis without rheumatoid factor, right hand; M06.042 Rheumatoid arthritis without rheumatoid factor, left hand | CPT/HCPCS: 80076; 82565; 85025; 86140; 87426 ==

== ENCOUNTER → 2024-07-09 16:46 | Outpatient (BNVA) | payer MEDICAID, SELFPAY | PROVIDERS: PCP Family Medicine; Visit Provider Family Medicine | DX: R05.9 Cough, unspecified (principal) | CPT/HCPCS: 87426 ==

== ENCOUNTER → 2024-10-10 13:12 | Outpatient (BNVA) | payer MEDICAID, SELFPAY | PROVIDERS: PCP Family Medicine; Visit Provider Nurse Practitioner Women's Health | DX: Z11.3 Encounter for screening for infections with a predominantly sexual mode of transmission (principal) | CPT/HCPCS: 86592; 86803; 87340; 87491; 87591; 87661; 87806 ==

== ENCOUNTER → 2024-11-17 16:13 | Outpatient (BNVA) | payer MEDICAID, SELFPAY | PROVIDERS: PCP Family Medicine; Visit Provider Internal Medicine Rheumatology | DX: Z11.1 Encounter for screening for respiratory tuberculosis (principal); M06.041 Rheumatoid arthritis without rheumatoid factor, right hand; M06.042 Rheumatoid arthritis without rheumatoid factor, left hand; Z79.899 Other long term (current) drug therapy | CPT/HCPCS: 36415; 80076; 82565; 85025; 85652; 86140; 86480 ==